=== PATIENT | female | born 1990 | race Caucasian/White ===

== ENCOUNTER 2022-04-27 18:14 | Emergency (ER) | payer OTHER, SELFPAY ==
[2022-04-27 18:19] VITALS: BP 126/75; PULSE 83; RESP 16; TEMP 37.1; O2SAT 99
--- NOTE | 2022-04-27 18:19 | ED.SKABFB ---
HPI - Skin/Abscess/Foreign Bdy General Chief complaint: Skin/Abscess/Foreign Body Stated complaint: Rash Time Seen by Provider: 04/27/22 18:20 Source: patient Mode of arrival: ambulatory Limitations: no limitations History of Present Illness HPI narrative: Clara is a 31-year-old female patient presenting to the clinic today with the itchy rash on her torso, chest, and upper thighs. States that this rash has been going on for 3-4 days. She has recently bought a new wool polyester blanket and thinks that this may be the cause. No one else in the house has the rash. 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 Related Data Allergies Allergy/AdvReac Type Severity Reaction Status Date / Time cefadroxil [From [facility]] Allergy Rash Verified 04/27/22 18:29 Review of Systems Review of Systems: Pertinent positives per HPI. Patient denies any fever, chills, headache, visual changes, dizziness, cough, runny nose, sore throat, shortness of breath, chest pain, palpitations, nausea, vomiting, diarrhea, constipation, abdominal pain, or any urinary issues. PMFSH Comments At the time of my signature, I reviewed and agree with the nursing past medical, surgical, social, and family history. There is no relevant family history pertinent to the patient complaint. Exam Narrative: General: Well-developed, well nourished, in no apparent distress Head: Normocephalic, atraumatic. Cardio: Regular rate and rhythm, s1 and s2 normal, no murmur appreciated. Resp: Clear to auscultation bilaterally, no rhonchi, rales, wheezing or rubs. Integumentary: [place], warm, and dry, intact without lesion, Red raised papular itchy scaly rash to the torso, chest, and bilateral thighs Course Course Emergency Course: Portions of this record may have been created with voice recognition software. Level of Care: Express Care Visit Vital Signs Vital signs: Vital Signs Temperature 37.1 C 04/27/22 18:19 Pulse Rate 83 04/27/22 18:19 Respiratory Rate 16 04/27/22 18:19 Blood Pressure 126/75 04/27/22 18:19 Pulse Oximetry 99 04/27/22 18:19 Oxygen Delivery Room Air 04/27/22 18:19 Temperature 37.1 C 04/27/22 18:19 Pulse Rate 83 04/27/22 18:19 Respiratory Rate 16 04/27/22 18:19 Blood Pressure 126/75 04/27/22 18:19 Pulse Oximetry 99 04/27/22 18:19 Oxygen Delivery Room Air 04/27/22 18:19 Vital signs reviewed MDM - Skin/Abscess/Foreign Bdy MDM Narrative Medical decision making narrative: At the time of visit patient is resting comfortably on exam table. I suspect patient has dermatitis. Prescription for prednisone and Vistaril was prescribed and sent to the pharmacy. Supportive measures were discussed with the patient she voiced understanding discharge instructions and agrees to treatment plan. Differential Diagnosis Differential diagnosis: Likely abscess of skin or subcutaneous tissue, urticaria, eczema, insect bites and contact dermatitis Discharge Plan Discharge Clinical Impression: Dermatitis Patient Disposition: Home, Self-Care Condition: Stable Instructions: Antibiotic Form, Dermatitis (ED) Additional Instructions: Avoid taking hot showers. Take Vistaril as needed for itching. Take prednisone as prescribed Avoid scratching Avoid any irritating factors- wool blanket Moisturize skin twice daily using a non scented moisturizer Follow-up with your PCP in 3-5 days if symptoms persist or sooner if they worsen Prescriptions: New hydroxyzine pamoate [Vistaril] 25 mg capsule 25 mg PO TID PRN (Reason: itching) 7 Days Qty: 20 0RF prednisone 20 mg tablet 40 mg PO DAILY 5 Days Qty: 10 0RF Follow-up/Referrals: Jaron Del Rosario MD [Primary Care Provider] - Time of Disposition: 18:31 Quality NIHSS Nursing Documentation ED NIHSS nursing documentation: reviewed/agree
== END 2022-04-27 18:34 | disposition home or self-care (01) ==
PROVIDERS: Emergency Provider Nurse Practitioner Family; PCP Family Medicine
DX: L30.9 Dermatitis, unspecified (principal); J45.909 Unspecified asthma, uncomplicated
CPT/HCPCS: 99203; G0463

== ENCOUNTER 2023-03-22 11:02 | Emergency (ER) | payer OTHER, SELFPAY ==
[2023-03-22 11:10] VITALS: BP 111/74; PULSE 75; RESP 16; TEMP 36.9; O2SAT 96
--- NOTE | 2023-03-22 11:12 | ED.URI ---
HPI - URI/Sore Throat General Chief Complaint: Upper Respiratory Infection Stated Complaint: Congestion Time Seen by Provider: 03/22/23 11:15 Source: patient Mode of arrival: ambulatory Limitations: no limitations History of Present Illness HPI Narrative: Clara is a 32-year-old female patient presenting to the clinic today with complaints of nasal congestion, sore throat, chest congestion, fever, chills, and body aches x1 week. She reports fever was high as 101.8 earlier this week. Temperature last night was 100F MD elicited complaint: sore throat and nasal congestion Related Data Allergies Allergy/AdvReac Type Severity Reaction Status Date / Time cefadroxil [From [facility]] Allergy Rash Verified 04/27/22 18:29 Review of Systems Review of Systems: Pertinent positives per HPI. Patient denies any rash, headache, visual changes, dizziness, shortness of breath, chest pain, palpitations, nausea, vomiting, diarrhea, constipation, abdominal pain, or any urinary issues. PMFSH Comments At the time of my signature, I reviewed and agree with the nursing past medical, surgical, social, and family history. There is no relevant family history pertinent to the patient complaint. Exam Narrative: General: Well-developed, well nourished, in no apparent distress Head: Normocephalic, atraumatic Eyes: Pupils equally round and reactive to light bilaterally, EOM intact, sclera and conjunctive clear, no discharge, lids normal Ears: TMs intact and clear, ear canals clear, no drainage, grossly hearing normal. Nose: Nares patent, clear nasal discharge, no inflammation, no sinus tenderness. Mouth: Oral pharynx red without lesions or masses, good dentition, MMM. Neck: Supple, trachea midline, mild enlargement of anterior cervical nodes, no thyroid masses or goiter palpable. Cardio: Regular rate and rhythm, s1 and s2 normal, no murmur appreciated. Resp: Clear to auscultation bilaterally, no rhonchi, rales, wheezing or rubs Course Course Emergency Course: Portions of this record may have been created with voice recognition software. Level of Care: Express Care Visit Vital Signs Vital signs: Vital Signs Temperature 36.9 C 03/22/23 11:10 Pulse Rate 75 03/22/23 11:10 Respiratory Rate 16 03/22/23 11:10 Blood Pressure 111/74 03/22/23 11:10 Pulse Oximetry 96 03/22/23 11:10 Oxygen Delivery Room Air 03/22/23 11:10 Temperature 36.9 C 03/22/23 11:10 Pulse Rate 75 03/22/23 11:10 Respiratory Rate 16 03/22/23 11:10 Blood Pressure 111/74 03/22/23 11:10 Pulse Oximetry 96 03/22/23 11:10 Oxygen Delivery Room Air 03/22/23 11:10 Vital signs reviewed MDM - URI/Sore Throat MDM Narrative Medical decision making narrative: At the time of visit patient is resting comfortably on the exam table. Strep test was positive in the clinic today. I suspect patient has URI with strep pharyngitis. Prescription for amoxicillin was sent to the pharmacy and supportive measures were discussed with the patient he voiced understanding of discharge instructions and agrees to treatment plan. Differential Diagnosis Differential diagnosis: Likely upper respiratory infection, otitis media, sinusitis, viral infection, bronchitis, influenza, pharyngitis and other (COVID) Discharge Plan Discharge Clinical Impression: Acute streptococcal pharyngitis Upper respiratory infection Qualifiers: URI type: unspecified URI Qualified Code(s): J06.9 - Acute upper respiratory infection, unspecified Patient Disposition: Home, Self-Care Condition: Stable Instructions: Antibiotic Form, Strep Throat (ED), Upper Respiratory Infection (ED) Additional Instructions: Take prescription medications only as prescribed-amoxicillin Change toothbrush in 24 hours after initiation of the antibiotics Increase fluids and stay well hydrated Tylenol/motrin for pain/fever Flonase and OTC antihistamines as directed Vicks vapor
== END 2023-03-22 11:34 | disposition home or self-care (01) ==
PROVIDERS: Emergency Provider Nurse Practitioner Family
DX: J02.0 Streptococcal pharyngitis (principal); J45.909 Unspecified asthma, uncomplicated
CPT/HCPCS: 87880; 99213; G0463

== ENCOUNTER 2023-04-28 12:00 | Emergency (ER) | payer OTHER, SELFPAY ==
[2023-04-28 12:10] VITALS: BP 121/75; PULSE 69; RESP 16; TEMP 36.9; O2SAT 100
--- NOTE | 2023-04-28 13:04 | ED.URI ---
HPI - URI/Sore Throat General Chief Complaint: Upper Respiratory Infection Stated Complaint: Congestion/Sore Throat History of Present Illness HPI Narrative: Patient presents with a 3 day history of nasal congestion cough and sore throat. No trouble swallowing no drooling. Patient has not been exposed to any viruses that she is aware of. Patient is taking NyQuil DayQuil for her symptoms. Patient states she missed work Saturday and does not feels if she is able to go to work tomorrow she would like a work note. Related Data Home Medications Medication Instructions Recorded Confirmed No Home Medications 04/28/23 04/28/23 Allergies Allergy/AdvReac Type Severity Reaction Status Date / Time [facility] [[facility]] Allergy Rash Verified 04/28/23 12:35 Review of Systems Review of Systems: CONSTITUTIONAL: Denies chills, or sweats. Reports fever and generalized body aches EYES: Denies visual changes, redness, or discharge. ENT: Denies otalgia. Reports nasal congestion runny nose and sore throat CARDIOVASCULAR: Denies chest pain, palpitations, or edema. RESPIRATORY: Denies dyspnea. Reports occasional cough GASTROINTESTINAL: Denies abdominal pain, nausea, vomiting, or diarrhea. GENITOURINARY: Denies dysuria or hematuria. SKIN: Denies rash or itching. MUSCULOSKELETAL: Denies back pain, joint pain, or myalgia. Reports generalized body aches NEUROLOGIC: Denies headache, numbness, or weakness. PSYCHIATRIC: Denies anxiety or depression. PMFSH Comments At time of signature, agree with nursing past medical, surgical, social and family history. There is no relevant family history pertinent to the presenting complaint Exam Narrative: The patient is a well-developed, well-nourished in no acute distress. SKIN: Skin is warm and dry without erythema, swelling or exudate. There is good turgor. No tenting. HEAD: Atraumatic. Normocephalic. No temporal or scalp tenderness. EYES: Moist and bright. Sclera and conjunctivae normal. No discharge. PERRLA. Extraocular motions intact. Gross visual acuity intact. EARS: Pinna is normal shape and contour. Clear external auditory canals. TM pearly sainz with good cone of light, no erythema or suppuration. Bilateral cerumen noted no gross hearing deficit. NOSE: pink, moist mucosa with good air movement. Clear rhinorrhea without nasal flaring. Septum midline. Mouth: moist mucous membranes. THROAT; mild erythema noted to posterior oropharynx with moderate postnasal drainage. Without exudate or ulceration.. Uvula midline. Normal movement of soft palate. NECK: Supple and nontender with full range of motion without discomfort. No meningeal signs. LUNGS: Equal and bilateral breath sounds without wheezes, rales or rhonchi. CHEST: The chest wall is without retractions or use of accessory muscles. HEART: Has a regular rate and rhythm without murmur, gallops, click or rub. ABDOMEN: Soft, nontender with positive active bowel sounds. No rebound tenderness. EXTREMITIES: Without cyanosis, clubbing or edema. Equal 2+ distal pulses and 2 second capillary refill noted. NEUROLOGIC: alert, active, . The patient moves all extremities with normal muscle strength. Normal muscle tone is noted. Normal coordination is noted. NO focal neurological findings noted. Course Course Level of Care: Express Care Visit Vital Signs Vital signs: Vital Signs Temperature 36.9 C 04/28/23 12:10 Pulse Rate 69 04/28/23 12:10 Respiratory Rate 16 04/28/23 12:10 Blood Pressure 121/75 04/28/23 12:10 Pulse Oximetry 100 04/28/23 12:10 Oxygen Delivery Room Air 04/28/23 12:10 Temperature 36.9 C 04/28/23 12:10 Pulse Rate 69 04/28/23 12:10 Respiratory Rate 16 04/28/23 12:10 Blood Pressure 121/75 04/28/23 12:10 Pulse Oximetry 100 04/28/23 12:10 Oxygen Delivery Room Air 04/28/23 12:10 MDM - URI/Sore Throat Lab Data Labs: Influenza A Screen Negative
== END 2023-04-28 13:12 | disposition home or self-care (01) ==
PROVIDERS: Emergency Provider Nurse Practitioner Family
DX: J06.9 Acute upper respiratory infection, unspecified (principal)
CPT/HCPCS: 87081; 87804; 87880; 99213; G0463

== ENCOUNTER 2024-02-10 18:13 | Emergency (ER) | payer SELFPAY ==
[2024-02-10 18:20] VITALS: BP 109/63; PULSE 59; RESP 17; TEMP 37.2; O2SAT 99
--- NOTE | 2024-02-10 18:23 | ED.URI ---
HPI - URI/Sore Throat General Chief Complaint: Upper Respiratory Infection Stated Complaint: Sore Throat/Headache Time Seen by Provider: 02/10/24 18:47 Source: patient Mode of arrival: ambulatory Limitations: no limitations History of Present Illness HPI Narrative: Patient is a 33-year-old female who presents with sore throat started today along with headache 3 days. Patient at home COVID test was negative. Denies any fever, chills, nausea, vomiting, diarrhea. Has not taken anything for symptoms. Related Data Home Medications Medication Instructions Recorded Confirmed No Home Medications 04/28/23 02/10/24 Allergies Allergy/AdvReac Type Severity Reaction Status Date / Time cefadroxil [From [facility]] Allergy Rash Verified 04/28/23 12:35 Review of Systems Review of Systems: All systems reviewed & are unremarkable except as noted in HPI and below Constitutional: Constitutional: Denies body ache(s), Denies chills, Denies fatigue, Denies fever(s), Denies headache(s), Denies malaise and Denies weakness Eyes: Eyes: Denies blurry vision, Denies itchy eyes and Denies loss of vision ENT: Denies otalgia, Denies headache(s), Reports nasal congestion, Denies sinus pain and Denies sore throat Cardiovascular: Cardiovascular: Denies chest pain, Denies irregular heart rhythm and Denies dyspnea Respiratory: Respiratory: Reports cough and Denies dyspnea Gastrointestinal: Gastrointestinal: Denies abdominal pain, Denies diarrhea, Denies nausea and Denies vomiting Musculoskeletal: Musculoskeletal: Denies back pain, Denies myalgias and Denies arthralgias Integumentary/Breasts: Skin/Breast: Denies pruritus and Denies rash Neurologic: Denies headache(s), Denies loss of vision and Denies weakness Psychiatric: Psychiatric: Reports no additional psychiatric complaints Endocrine: Endocrine: Denies fatigue Allergic/Immunologic: Allergic/Immunologic: Denies itchy eyes PMFSH Comments At time of signature, agree with nursing past medical, surgical, social and family history. There is no relevant family history pertinent to the presenting complaint. Exam Const: General: cooperative, healthy appearing, comfortable, no acute distress and well nourished Nutritional Appearance: well nourished Orientation/consciousness: patient oriented x3 Limitations: no limitations HENMT: Head: normal to inspection, normocephalic and atraumatic Ears: hearing grossly normal bilaterally, external ears normal, TM's normal bilaterally, EAC's normal and no periauricular adenopathy Face/Nose/Sinus: Normal external nose present, Abnormal mucous membranes and turbinates present erythematous bilateral and diffuse, normal facial exam, sinuses nontender and face symmetric Face and sinus: normal facial exam, sinuses nontender and face symmetric Mouth: Yes Normal oral and palatal mucosa present, Yes lip normal, Yes tongue normal, Yes Normal salivary glands and ducts present, Yes oropharynx normal and Yes moist mucous membranes Teeth and gingiva: dentition normal Throat: posterior oropharynx normal, tonsils normal and uvula midline Eyes: General: appearance normal, both eyes and all related structures Alignment and Position: alignment normal and position normal Periorbital: periorbital findings normal Eyelids: eyelids normal Pupils: Equal, round and reactive pupils present Neck: Neck: normal visual inspection, full ROM, no lymphadenopathy and supple Chest: Chest palpation & inspection: normal inspection of the chest and normal palpation of entire chest wall Resp: Effort & Inspection: normal respiratory effort and able to speak in complete sentences Auscultation: clear to auscultation bilaterally, no crackles, no rales, no rhonchi and no wheezes Cardio: Rate: regular rate Rhythm: regular rhythm Heart sounds: S1 normal heart sound present and S2 normal heart sound present GI: Inspection: normal to inspection Skin: General skin exam: normal color and no rashes
[2024-02-10 19:02] LABS: EDSTREPNEGPOS1 Negative (Negative)
== END 2024-02-10 19:20 | disposition home or self-care (01) ==
PROVIDERS: Emergency Provider Nurse Practitioner Family
DX: J06.9 Acute upper respiratory infection, unspecified (principal); J45.909 Unspecified asthma, uncomplicated
CPT/HCPCS: 87081; 87880; 99213; G0463

== ENCOUNTER 2024-07-01 10:20 | Emergency (ER) | payer SELFPAY ==
[2024-07-01 10:24] VITALS: BP 100/68; PULSE 68; RESP 16; TEMP 36.4; O2SAT 100
--- NOTE | 2024-07-01 10:35 | ED_ITS ---
HPI - Headache General Chief Complaint: Headache Stated Complaint: Headache Source: patient Mode of arrival: ambulatory Limitations: no limitations History of Present Illness HPI Narrative: 33 y/o female presented for c/o migraine headache, onset midnight. Endorses 'tunnel vision,' nausea with an episode of vomiting. States she has been able to tolerate food and fluids. Denies neck pain, fatigue, cough, sob, wheezing or fever. Says she has not had a migraine in 2 years. Took Excedrin, and says it is starting to calm down. Related Data Allergies Allergy/AdvReac Type Severity Reaction Status Date / Time cefadroxil (From [facility]) Allergy Rash Verified 07/01/24 10:28 Review of Systems Review of Systems: CONSTITUTIONAL: Denies body aches, fever, chills, or sweats. EYES: reports visual changes, photophobia denies redness, or discharge. ENT: Denies rhinorrhea, congestion, sore throat, or otalgia. CARDIOVASCULAR: Denies chest pain, palpitations, or edema. RESPIRATORY: Denies cough or dyspnea. GASTROINTESTINAL: Denies abdominal pain, reports nausea, vomiting SKIN: Denies rash, itching, or wounds. MUSCULOSKELETAL: Denies back pain, joint pain, or myalgia. NEUROLOGIC: reports headache, Denies numbness, tingling, or weakness. All systems reviewed & are unremarkable except as noted in HPI and below PMFSH Comments At time of signature, I have reviewed and agree with nursing past medical, surgical, social and family history unless otherwise noted. Please see nursing chart for further information. There is no relevant family history pertinent to the presenting complaint Exam Narrative: GENERAL: mildly ill-appearing/in pain, no acute distress. HEAD: Normocephalic, atraumatic. EYES: EOMI. No redness or drainage. Conjunctivae normal. ENT: Mucous membranes pink and moist. No rhinorrhea. TMs normal bilaterally. Throat normal. Uvula midline. NECK: Normal AROM. CHEST: No respiratory distress. Clear to auscultation. HEART: Regular rate and rhythm. Normal peripheral pulses. SKIN: Warm, dry, no rash. Capillary refill normal. Normal skin turgor. NEURO: No focal deficits. Alert and oriented x3. Gait steady. PSYCH: Normal affect. Course Course Emergency Course: Patient is aware of diagnosis, understands and agrees to treatment plan. Anticipatory guidance given. Patient agrees to follow-up as directed and is aware of reasons to seek care at the emergency department. Portions of this record may have been created with voice recognition software Level of Care: Express Care Visit Vital Signs Vital signs: Vital Signs Temperature 97.5 F L 07/01/24 10:24 Pulse Rate 68 07/01/24 10:24 Respiratory Rate 16 07/01/24 10:24 Blood Pressure 100/68 07/01/24 10:24 Pulse Oximetry 100 07/01/24 10:24 Oxygen Delivery Room Air 07/01/24 10:24 Temperature 97.5 F L 07/01/24 10:24 Pulse Rate 68 07/01/24 10:24 Respiratory Rate 16 07/01/24 10:24 Blood Pressure 100/68 07/01/24 10:24 Pulse Oximetry 100 07/01/24 10:24 Oxygen Delivery Room Air 07/01/24 10:24 MDM - Headache MDM Narrative Medical decision making narrative: Discussed physical exam findings consistent with migraine. IM Toradol given and pt reported improvement in the tunnel vision and says she feels stronger.. Advised supportive measures and signs/symptoms to go to the ER. Pt is appropriate for outpt treatment and f/u. Differential Diagnosis Differential diagnosis: Likely migraine, tension headache, subarachnoid hemorrhage, headache and sinusitis Discharge Plan Discharge Clinical Impression: Migraine Patient Disposition: Home, Self-Care Condition: Stable Instructions: Antibiotic Form, Migraine Headache (ED) Additional Instructions: Rest in a cool dark room Avoid screens (computers, tablets, phones, television) Drink plenty fluids. Tylenol 1000mg every 8 hours as needed Follow up with your primary care provider in 1 week Go to the ER for worsening symptoms or concerns Patient Language: Persian Prescriptions: New sumatriptan succinate 25 mg tablet See Rx Instructions .ROUTE .COMPLEX Qty: 9 0RF Rx Instructions: take 1 tab at onset of headache; if no relief may repeat 1 tab after at least 2 hrs; max = 4 tabs/24 hr Follow-up/Referrals: PHYSICIAN,DINING ROOM HOST/HOSTESS [Primary Care Provider] - Stand Alone Forms: Work/School Release IP Time of Disposition: 11:06
[2024-07-01] MEDS: KETOROLAC (*BKC) 60 MG/2 ML VIAL IM (10:48)
--- OUTSIDE RECORDS SUMMARY | 2024-07-01 11:41 | XMS_ITS | Clinical Summary ---
Author Organization [facility] Address [address] [place] [address] Phone Care Team Providers Care Post Doctoral Researcher Name Role Phone Unavailable Unavailable Unavailable Reason for Visit and Chief Complaint Pt presents for problem in addition to annual exam, gynecologic annual exam - The Chief Complaint is: Annual-pt would like to schedule her u/s since she had a cyst awhile back. Now she has insurance again. She also has a yeast infection and would like another nexplanon/kk Problems Includes: Problems addressed during this encounter and other active Problems Current Visit Onset Date Resolved Date Provider Conditio n Status Risk: Tobacco Use 10/14/2017 RIGO A FORTUNATO WHNP -BC Active Last Documented On 8 9:14AM ; [facility] Plan of Treatment - Clinical summary provided to patient - Last Documented On 10/14/2017 9:37AM ; [facility] Pending Tests Order Diagnosis Results Due Ordering P rovider Ultrasound (OB) - ULTRASOUND Pelvic w/TVT (TransVag) Other ovarian cyst, right side 10/14/17 RIGO BUCIO WHNP-BC Last Documented On 9 1:27PM ; [facility] Instructions to patient Instructions for patient : B reast Self Exam discussed Last Documented On 8 9:09AM ; [facility] Instructions for patient : K eep the area around the vulva dry. Allow the area to have exposure to air. Avoid irritants such as fabric softeners and perfumed soaps.~ Last Documented On 8 9:21AM ; [facility] Return to the clinic if cond ition worsens or new symptoms arise Last Documented On 8 9:20AM ; [facility] Advised d/c scented bath pro ducts Last Documented On 8 9:21AM ; [facility] ER/ Pain Precautions Last Documented On 8 9:20AM ; [facility] Gardasil information given a nd series encouraged Series completed! Last Documented On 8 9:11AM ; [facility] Safe sex counseling Last Documented On 8 9:11AM ; [facility] Education and Decision Aids were provided during visit for: Patient Education: Daily giovany cium and vitamin D Last Documented On 8 9:09AM ; [facility] Patient Education: weight be aring exercise Last Documented On 8 9:09AM ; [facility] Smoking cessation advised Last Documented On 8 9:11AM ; [facility] Candidiasis Vulvovaginitis I nformation Sheet Given Last Documented On 8 9:21AM ; [facility] Assessments Includes: Assessments from this encounter Findings - NORMAL FEMALE EXAM - Last Documented On 10/14/2017 9:37AM ; [facility] - Shannen albicans vulvovaginitis - Last Documented On 10/14/2017 9:37AM ; [facility] Instructions Includes: Instructions from this encounter Instructions to patient Instructions for patient : B reast Self Exam discussed Last Documented On 8 9:09AM ; [facility] Instructions for patient : K eep the area around the vulva dry. Allow the area to have exposure to air. Avoid irritants such as fabric softeners and perfumed soaps.~ Last Documented On 8 9:21AM ; [facility] Return to the clinic if cond ition worsens or new symptoms arise Last Documented On 8 9:20AM ; [facility] Advised d/c scented bath pro ducts Last Documented On 8 9:21AM ; [facility] ER/ Pain Precautions Last Documented On 8 9:20AM ; [facility] Gardasil information given a nd series encouraged Series completed! Last Documented On 8 9:11AM ; [facility] Safe sex counseling Last Documented On 8 9:11AM ; [facility] Education and Decision Aids were provided during visit for: Patient Education: Daily giovany cium and vitamin D Last Documented On 8 9:09AM ; [facility] Patient Education: weight be aring exercise Last Documented On 8 9:09AM ; [facility] Smoking cessation advised Last Documented On 8 9:11AM ; [facility] Candidiasis Vulvovaginitis I nformation Sheet Given Last Documented On 8 9:21AM ; [facility] Medical Equipment - Implanted Devices Includes: Current Devices No Medical Equipment Recorded Medications Includes: Medications discussed during this encounter and other current Medications Discontinued / Stopped on this date RIGO BUCIO JOSE on 10/18/2014 Bactrim DS 800-160 MG Tablet Provider: RIGO BLAKELY Diagnosis: DYSURIA Last Documented On 10/14/2017 9:20AM By MALKA SAENZ ; [facility] Diflucan 150 MG Tablet Provider: RIGO BLAKELY Diagnosis: Last Documented On 10/14/2017 9:20AM By MALKA SAENZ ; [facility] New / Renewed during this visit RIGO BLAKELY on 10/14/2017 Diflucan 150MG Oral Tablet Provider: Stephen BUCIO JOSE 1 day supply: 1 tablet, 0 refills Diagnosis: One tablet daily [facility] [address] [facility], [phone] - Last Documented On 8 9:45AM By RIGO BLAKELY ; [facility] Current Medications (continue as prescribed) Nexplanon 68MG Subcutaneous Implant 10/31/2017 Provi misti: Diagnosis: Last Documented On 8 10:10AM By RIGO BUCIO JOSE ; [facility] Past Medications on file Macrobid 100 MG OR CAPS 05/10/2009 - 05/17/2009 Provid er: Diagnosis: Last Documented On 05/12/2009 9:33AM By KRISTI OROSCO ; [facility] Reglan 10 MG OR TABS 01/26/2009 - 02/16/2009 Provider: Diagnosis: Last Documented On 05/12/2009 9:34AM By KRISTI OROSCO ; [facility] PX Childrens Vitamin OR CHEW 01/13/2009 - 01/08/2010 Gaetano kelsynatalie: Diagnosis: Last Documented On 05/12/2009 9:32AM By KRISTI OROSCO ; [facility] Zofran 4 MG OR TABS 01/03/2009 - 01/19/2009 Provider: Diagnosis: 1 q 4 hr Last Documented On 05/12/2009 9:36AM By KRISTI OROSCO ; [facility] Medications Administered Includes: Administered Medications from this encounter No Administered Medications Recorded Vital Signs Includes: Vital Signs from this encounter Vital Name 10/14/2017 09:14A Blood Pressure Sitting L 110/64 BP Cuff Size Regular Height (in) 64 Weight (lb) 155 Body Mass Index (kg/m2) 26.6 Body Surface Area (m2) 1.8 Last Documented: On 10/14/2017 9:18AM ; [facility] Results Includes: Results discussed during this encounter No Results Recorded For Specified Dates History of Present Illness Includes: History of Present Illness from this encounter NYASIA KING is a 27 year old female. - Medication list reviewed. - No night sweats. Social History Description Last Updated Alcohol use rarely 10/14/2017 Last Documented On 8 9:37AM ; [facility] Cigarette smoking 10/14/2017 Last Documented On 8 9:37AM ; [facility] In monogamous relationship 10/14/2017 Last Documented On 8 9:37AM ; [facility] Not using drugs 10/14/2017 Last Documented On 8 9:37AM ; [facility] Sexually active with 1 partners in the l ast year 10/14/2017 Last Documented On 8 9:37AM ; [facility] Social history changed pt is now taking care of her 3 nieces and newphew with her mother 10/14/2017 Last Documented On 8 9:37AM ; [facility] Smoking status : Current everyday smoker 10/14/2017 Last Documented On 8 9:37AM ; [facility] Procedures and Surgical History Includes: Procedures from this encounter Procedures Code Diagnosis Performing Provider Service L ocation Service Date low fat diet Last Documented On 8 9:11AM ; [facility] a vaginal wet mount smear was performed [id number] Last Documented On 8 9:21AM ; [facility] a vaginal wet mount smear for shannen wa s positive Last Documented On 8 9:34AM ; [facility] a vaginal wet mount smear for Trichomona s vaginalis was negative Last Documented On 8 9:21AM ; [facility] a vaginal wet mount smear for clue cells was negative Last Documented On 8 9:21AM ; [facility] Chlamydia trachomatis culture was perfor med Last Documented On 8 9:11AM ; [facility] Neisseria gonorrhea culture was performe d Last Documented On 8 9:11AM ; [facility] Cervical Pap Smear performed [id number] Last Documented On 8 9:10AM ; [facility] Surgical History Last Updated Surgical / procedural history tubes in e ar ~surg on kidney 10/31/2017 Last Documented On 8 9:11AM ; [facility] Medical History Includes: Medical History addressed during this encounter Description Last Updated tubes in ears as baby ~age 6 &11 kidney reflux 10/31/2017 Last Documented On 8 9:11AM ; [facility] Asthma inhaler prn 10/31/2017 Last Documented On 8 9:11AM ; [facility] 1 10/31/2017 Last Documented On 8 9:11AM ; [facility] History of Gardasil had with pedbenny martinez 10/31/2017 Last Documented On 8 9:11AM ; [facility] Para 1 10/31/2017 Last Documented On 8 9:11AM ; [facility] No recent change in medical history 09/21 Last Documented On 8 9:37AM ; [facility] Sexually active 10/14/2017 Last Documented On 8 9:37AM ; [facility] Contraception: nexplanon 5-7-15 10/15/19 18 Last Documented On 8 9:37AM ; [facility] History of Pap smear done 07/08/201409/21 Last Documented On 8 9:37AM ; [facility] LMP: 09/04/2017 10/14/2017 Last Documented On 8 9:37AM ; [facility] Result: normal 10/14/2017 Last Documented On 8 9:37AM ; [facility] Family History Includes: Family History addressed during this encounter Description Last Updated Family history of Cancer lung, breast Last Documented On 8 9:11AM ; [facility] Family history unchanged 10/31/2017 Last Documented On 8 9:11AM ; [facility] Family medical history of high blood pre ssure 10/31/2017 Last Documented On 8 9:11AM ; [facility] Family medical history of High Cholester ol MGF 10/31/2017 Last Documented On 8 9:11AM ; [facility] Maternal grandfather's history of family history of heart disease MGF 10/14/2017 Last Documented On 8 9:37AM ; [facility] Maternal history of pure hypercholestero lemia mother 10/14/2017 Last Documented On 8 9:37AM ; [facility] Review of Systems Includes: Review of Systems from this encounter Systemic: Not feeling poorly (malaise). Eyes: No itching of the eyes. Otolaryngeal: No mouth sores. Breasts: No nipple discharge. Cardiovascular: The heart rate was not fast. Gastrointestinal: Normal appetite, no dysphagia, and no heartburn. No nausea, no vomiting, no abdominal pain, and no melena. No diarrhea. No pelvic pain. Genitourinary: No hematuria and no increase in urinary frequency. No dysuria. No genital lesion. Vaginal itching or burning. No menorrhagia. No dysmenorrhea and no bleeding between periods. Vaginal discharge. Endocrine: No excessive sweating. Musculoskeletal: No muscle aches. Neurological: No motor disturbances and no sensory disturbances. Skin: No skin lesions. Mental Status Includes: Mental Status from this encounter No Mental Status Recorded Functional Status Includes: Functional Status from this encounter No Functional Status Recorded Physical Exam Includes: Physical Exam from this encounter Allergies Includes: Active Allergies Substance Type Reaction Onset Date Resolved Date Statu s Cefadroxil Allergy Skin Rashes / Eruption of skin, Hives / Urticaria 05/12/2009 Active Last Documented On 10/14/2017 9:20AM ; [facility] Note: Duracef Encounters Encounter Provider Location Date Check-In Time Check-Out Time Diagnosis 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
--- OUTSIDE RECORDS SUMMARY | 2024-07-01 11:41 | XMS_ITS | Clinical Summary ---
Author Organization [facility] Address [address] [place] [phone] Phone Care Team Providers Care Seaming Inspector Name Role Phone Unavailable Unavailable Unavailable Reason for Visit and Chief Complaint unspecified reason for visit - The Chief Complaint is: nexplanon removal and reinsertion lot [id number] Problems Includes: Problems addressed during this encounter and other active Problems All Visits Onset Date Resolved Date Provider Condition S tatus Risk: Tobacco Use 10/14/2017 RIGO A FORTUNATO WHNP -BC Active Last Documented On 8 9:14AM ; [facility] Plan of Treatment - Clinical summary provided to patient - Last Documented On 10/31/2017 10:28AM ; [facility] Recheck urine culture today - s/p UTI and antibx at last visit! No c/o today! - Last Documented On 10/31/2017 10:28AM ; [facility] Pending Tests Order Diagnosis Results Due Ordering Provider In office procedures - OB Implanon Insertion Enctr srvlnc implantable subdermal contraceptive 11/14/17 RIGO A FORTUNATO WHNP-BC Last Documented On 8 10:27AM ; [facility] In office procedures - OB Implanon Removal Enctr srvlnc implantable subdermal contraceptive 11/14/17 RIGO A FORTUNATO WHNP-BC Last Documented On 8 10:27AM ; [facility] Education and Decision Aids were provided during visit for: Smoking cessation advised Last Documented On 8 10:10AM ; [facility] Assessments Includes: Assessments from this encounter Findings - Contraceptive surveillance - Last Documented On 10/31/2017 10:28AM ; [facility] Instructions Includes: Instructions from this encounter Education and Decision Aids were provided during visit for: Smoking cessation advised Last Documented On 8 10:10AM ; [facility] Medical Equipment - Implanted Devices Includes: Current Devices No Medical Equipment Recorded Medications Includes: Medications discussed during this encounter and other current Medications Discontinued / Stopped on this date on 08/26/2014 Nexplanon 68 MG Implant Provider: Diagnosis: Last Documented On 8 10:07AM By RIGO BUCIO JOSE ; [facility] Current Medications (continue as prescribed) Nexplanon 68MG Subcutaneous Implant 10/31/2017 Provi misti: Diagnosis: Last Documented On 8 10:10AM By RIGO BUCIO JOSE ; [facility] Diflucan 150MG Oral Tablet 10/14/2017 Provider: Stephen BLAKELY Diagnosis: One tablet daily Last Documented On 8 9:45AM By RIGO BUCIO JOSE ; [facility] Past Medications on file Macrobid 100 MG OR CAPS 05/10/2009 - 05/17/2009 Provid er: Diagnosis: Last Documented On 05/12/2009 9:33AM By KRISTI OROSCO ; [facility] Reglan 10 MG OR TABS 01/26/2009 - 02/16/2009 Provider: Diagnosis: Last Documented On 05/12/2009 9:34AM By KRISTI OROSCO ; [facility] PX Childrens Vitamin OR CHEW 01/13/2009 - 01/08/2010 Gaetano simmsder: Diagnosis: Last Documented On 05/12/2009 9:32AM By KRISTI OROSCO ; [facility] Zofran 4 MG OR TABS 01/03/2009 - 01/19/2009 Provider: Diagnosis: 1 q 4 hr Last Documented On 05/12/2009 9:36AM By KRISTI OROSCO ; [facility] Medications Administered Includes: Administered Medications from this encounter No Administered Medications Recorded Vital Signs Includes: Vital Signs from this encounter Vital Name 10/31/2017 10:04A Blood Pressure Sitting L 110/60 BP Cuff Size Regular Height (in) 64 Weight (lb) 157 Body Mass Index (kg/m2) 26.9 Body Surface Area (m2) 1.8 Last Documented: On 10/31/2017 10:06A M ; [facility] Results Includes: Results discussed during this encounter CULTURE, URINE, ROUTINE [facility]2014 Collected: 09/27/2014 Reported: 10/01/19 15 13:39 Last Documented On 5 2:18PM ; [facility] Reviewed on 09/30/2014; All test results are final unless otherwise noted. CULTURE, URINE, ROUTINE SEE NOTE A (Abnormal) Last Documented On 09/30/2014 2:18PM ; [facility] Note: CULTURE, URINE, ROUTINE MICRO NUMBER: [id number] TEST STATUS: FINAL SPECIMEN SOURCE: URINE, CLEAN CATCH SPECIMEN QUALITY: ADEQUATE RESULT: 10,000-50,000 CFU/mL of Escherichia coli COMMENT: Additional organism(s) less than 10,000 CFU/mL isolated. These organisms, commonly found on external and internal genitalia, are considered colonizers. No further testing performed. E.coli INT EDGAR AMOX/CLAVULANATE S <=2 AMPICILLIN S 4 AMP/SULBACTAM S <=2 CEFAZOLIN NR <=4 1 CEFEPIME S <=1 CEFTRIAXONE S <=1 CIPROFLOXACIN R >=4 ERTAPENEM S <=0.5 GENTAMICIN S <=1 IMIPENEM S <=0.25 LEVOFLOXACIN R >=8 NITROFURANTOIN S <=16 PIP/TAZOBACTAM S <=4 TOBRAMYCIN S <=1 TRIMETHOPRIM/SULFA S <=20S=Susceptible I=Intermediate R=Resistant * = Not TestedNR = Not Reported NN = See Therapy CommentsTHERAPY COMMENTS Note 1: ORAL therapy: A cefazolin EDGAR of < 32 predicts susceptibility to the oral agents cefaclor, cefdinir, cefpodoxime, cefprozil, cefuroxime, cephalexin, and loracarbef when used for therapy of uncomplicated UTIs due to E. coli, K. pneumoniae, and P. mirabilis. PARENTERAL therapy: A cefazolin EDGAR of > 8 indicates resistance to parenteral cefazolin. An alternate test method must be performed to to confirm susceptibility to parenteral cefazolin. History of Present Illness Includes: History of Present Illness from this encounter No History of Present Illness Recorded Social History No Social History Recorded - Smoking Status Unknown Procedures and Surgical History Includes: Procedures from this encounter Procedures Code Diagnosis Performing Provider Service L ocation Service Date Hormone implant - removal, left arm Area was cleaned with alcohol. 1 cc of Lidocaine 1 % plus epinephrine was injected underneath the tip of the Nexplanon la nena that is closest to the elbow. I pressed down on the end of the implant closest to the axilla and with a 10 blade made a 0.3 cm incision parallel to Nexplanon la nena. Nexplanon was gently pushed toward the incision until the tip was visible. The implant was grasped with forceps and gently pulled out. Nexplanon removed without difficulty. Steri-strip applied to the area along with a pressure bandage with sterile gauze. Patient instructed in wound care and signs of infection reviewed Last Documented On 8 10:06AM ; [facility] Etonogestrel implant - insertion Last Documented On 8 10:04AM ; [facility] test was negative Last Documented On 8 10:07AM ; [facility] Surgical History Last Updated Surgical / procedural history tubes in e ar ~surg on kidney 10/31/2017 Last Documented On 8 10:28AM ; [facility] Medical History Includes: Medical History addressed during this encounter Description Last Updated tubes in ears as baby ~age 6 &11 kidney reflux 10/31/2017 Last Documented On 8 10:28AM ; [facility] Asthma inhaler prn 10/31/2017 Last Documented On 8 10:28AM ; [facility] 1 10/31/2017 Last Documented On 8 10:28AM ; [facility] History of Gardasil had with peds Dr Cristin martinez 10/31/2017 Last Documented On 8 10:28AM ; [facility] Para 1 10/31/2017 Last Documented On 8 10:28AM ; [facility] Sexually active 10/31/2017 Last Documented On 8 10:28AM ; [facility] Family History Includes: Family History addressed during this encounter Description Last Updated Family history of Cancer lung, breast Last Documented On 8 10:28AM ; [facility] Family history of heart disease MGF 10/20 Last Documented On 8 10:28AM ; [facility] Family history of pure hypercholesterole harjinder mother 10/31/2017 Last Documented On 8 10:28AM ; [facility] Family history unchanged 10/31/2017 Last Documented On 8 10:28AM ; [facility] Family medical history of high blood pre ssure 10/31/2017 Last Documented On 8 10:28AM ; [facility] Family medical history of High Cholester ol MGF 10/31/2017 Last Documented On 8 10:28AM ; [facility] Maternal grandfather's history of family history of heart disease MGF 10/31/2017 Last Documented On 8 10:28AM ; [facility] Maternal history of pure hypercholestero lemia mother 10/31/2017 Last Documented On 8 10:28AM ; [facility] Review of Systems Includes: Review of Systems from this encounter No Review of Systems Recorded Mental Status Includes: Mental Status from this [...] Active Last Documented On 10/14/2017 9:20AM ; [facility] Note: Duracef Encounters Encounter Provider Location Date Check-In Time Check-Out Time Diagnosis PROCEDURE OFFICE RIGO BUCIO [facility] CHILD AND ADOLESCENT THERAPIST 11/01/19 18 10:02AM 10:33AM Contraceptive Surveillance Clinical Notes Includes: Clinical Notes from this encounter No Clinical Notes Recorded
--- OUTSIDE RECORDS SUMMARY | 2024-07-01 11:41 | XMS_ITS | Referral Summary ---
Author Organization [facility] Address [address] [place] [address] Care Team Providers Care Application Tester Name Role Phone No, Physician Primary Care Provider Encounters Date Type Department Care Team Description 05/04/2024 10:35 AM CURB WORKER - 05/04/2024 3:53 PM CURB WORKER Emergency [facility] Emergency Department [address] [place] [address] Gian Damian Jr., MD Diarrhea, unspecified type (Primary Dx); Lumbar strain, initial encounter; Dental cavities; Palpitations; Dehydration Discharge Disposition: Discharge to home or self care from Last 3 Months Allergies Active Allergy Reactions Criticality Noted Date Comments Cefadroxil Hives Reaction: HIVES Medications hydrOXYzine (ATARAX) 25 mg tablet Take 1 tablet (25 mg total) by mouth 4 (four) times a day as needed for itching or anxiety (congestion) 20 tablet 05/04/2024 Active loperamide (IMODIUM) 2 mg capsuleIndicati ons:diarrhea Take 1 capsule (2 mg total) by mouth 4 (four) times a day as needed for diarrhea 20 capsule 05/04/2024 Active Social History Tobacco Use Types Packs/Day Years Used Date Smoking Tobacco: Former Personal Safety Answer Date Recorded Have you ever been in or are you currently in a harmful physical or emotional relationship or is someone making you feel afraid or unsafe? Denies 05/04/2024 Comments Unknown Sex and Gender Information Value Date Recorded Sex Assigned at Not on file Legal Sex Female 10:06 PM CURB WORKER Gender Identity Not on file Sexual Orientation Not on file Last Filed Vital Signs Vital Sign Reading Time Taken Comments Blood Pressure 131/75 05/04/2024 3:52 PM CURB WORKER Pulse 69 05/04/2024 3:52 PM CURB WORKER Temperature 36.7 C (98.1 F) 05/04/2024 9:22 AM CURB WORKER Respiratory Rate 16 05/04/2024 3:52 PM CURB WORKER Oxygen Saturation 97% 05/04/2024 9:22 AM CURB WORKER Inhaled Oxygen Concentration - - Weight 67.1 kg (148 lb) 05/04/2024 9:23 AM CURB WORKER Height 160 cm (5' 3 ) 05/04/2024 9:23 AM CURB WORKER Body Mass Index 26.22 05/04/2024 9:23 AM CURB WORKER Plan of Treatment Not on file Procedures Procedure Name Priority Date/Time Associated Diagnosis Comments URINALYSIS, MICROSCOPIC ONLY STAT 05/04/2024 11:36 AM CURB WORKER DRUGS OF ABUSE SCREEN, URINE WITHOUT CONFIRMATION STAT 05/04/2024 11:36 AM CURB WORKER URINALYSIS AND REFLEX TO MICROSCOPIC STAT 05/04/2024 11:36 AM CURB WORKER CREATINE KINASE (CK), TOTAL STAT 05/04/2024 11:29 AM CURB WORKER EGFR STAT 05/04/2024 11:26 AM CURB WORKER DIFFERENTIAL AUTO STAT 05/04/2024 11: 26 AM CURB WORKER THYROID FUNCTION CASCADE STAT 05/04/2024 11:26 AM CURB WORKER LIPASE STAT 05/04/2024 11:26 AM CURB WORKER COMPREHENSIVE METABOLIC PANEL STAT 05/04/2024 11:26 AM CURB WORKER CBC WITH AUTO DIFFERENTIAL STAT 05/04/2024 11:26 AM CURB WORKER RESPIRATORY PATHOGEN PANEL Routine 05/04/2024 11:26 AM CURB WORKER POCT RAPID HIV ANTIBODY COMMUNITY SCREENING-RAHUL ELIGIBLE STAT 05/04/2024 11:21 AM CURB WORKER POCT HCG, URINE Routine 05/04/2024 11:16 AM CURB WORKER ECG 12-LEAD STAT 05/04/2024 9:16 AM CURB WORKER from Last 3 Months Results * (ABNORMAL) Urinalysis reflex to microscopic (05/04/2024 11:36 AM CURB WORKER) Color, ur Straw Yellow Clarity, ur Clear Clear [facility] Specific gravity, ur 1.016 1.003 - 1.030 [facility] pH, urine 6.0 [facility] Comment: Interpretive Data U rine pH is affected by diet, medications, systemic acid-base disturbances, and renal tubular function. pH may affect urinary stone formation. For example, urine pH below 6.0 may help reduce the tendency for calcium phosphate stones and pH greater than 6.0 may reduce the tendency for uric acid stone formation. Source: [facility] [place] Current Interpretive Data was last revised on 2017 Protein, ur ql Negative Negative [facility] Glucose, ur ql Negative Negative [facility] Ketones, ur 2+(A) Negative [facility] Bilirubin, ur Negative Negative [facility] Blood, ur Trace(A) Negative [facility] Urobilinogen, ur <2.0 <2.0 mg/dL [facility] Nitrite, ur Negative Negative [facility] Leukocyte esterase, ur Negative Negative [facility] UA reflex comment Reflex to microscopic UA will be performed. [facility] Urine 05/04/2024 11:3 6 AM CURB WORKER 05/04/2024 11:41 AM CURB WORKER us Gian Damian Jr., MD LAB URINE ORDERABLES F inal Result [facility] Department [place] [address] * (ABNORMAL) Drugs of Abuse Screen, Urine without Confirmation (05/04/2024 11:36 AM CURB WORKER) Amphetamine, ur Not Detected CutOff 500ng/mL Comment: Interpretive Data - Amphetamines: Samples containing greater than 500 ng/mL d-methamphetamine or other cross-reacting amphetamine compounds are reported as positive. Amphetamine immunoassays are subject to significant false positive rates due to cross-reactivity of non-amphetamine drugs. Confirmatory testing required for definitive results. Current Interpretive Data was last reviewed 2022. Barbiturates, ur Not Detected CutOff 200ng/mL [facility] Comment: Interpretive Data - Barbiturates: Samples containing greater than 200 ng/mL secobarbital or other cross-reacting barbiturate compounds are reported as positive. False positive and false negative results are possible. Confirmatory testing required for definitive results. Current Interpretive Data was last reviewed 2022. Benzodiazepines, ur Screen Positive, presumptive (A) CutOff 100ng/mL [facility] Comment: Interpretive Data - Benzodiazepines: Samples containing greater than 100 ng/mL nordiazepam or other cross-reacting compounds are reported as positive. False positive and false negative results are possible. Confirmatory testing required for definitive results. Current Interpretive Data was last reviewed 2022. Cannabinoids, ur Screen Positive, presumptive (A) CutOff 50 ng/mL [facility] Comment: Interpretive Data - Cannabinoids: Samples containing greater than 50 ng/mL delta-9 THC -COOH or other cross- reacting compounds are reported as positive. False positive and false negative results are possible. Confirmatory testing required for definitive results. Current Interpretive Data was last reviewed 2022. Cocaine, ur Not Detected CutOff 150ng/mL [facility] Comment: Interpretive Data - Cocaine: Samples containing greater than 150 ng/mL benzoylecgonine or other cross- reacting compounds are reported as positive. False positive and false negative results are possible. Confirmatory testing required for definitive results. Current Interpretive Data was last reviewed 2022. Fentanyl, Ur Not Detected CutOff 5 ng/mL [facility] Comment: Interpretive Data - Fentanyl: Samples containing greater than 5 ng/mL norfentanyl, fentanyl, or other cross-reacting fentanyl compounds are reported as positive. False positive and false negative results are possible. Confirmatory testing required for definitive results. Current Interpretive Data was last reviewed 2023. Methadone, ur Not Detected CutOff 300ng/mL [facility] Comment: Interpretive Data - Methadone: Samples containing greater than 300 ng/mL d,l-methadone or other cross-reacting compounds are reported as positive. False positive and false negative results are possible. Confirmatory testing required for definitive results. Current Interpretive Data was last reviewed 2022. Opiates, ur Not Detected CutOff 300ng/mL [facility] Comment: Interpretive Data - Opiates: Samples containing greater than 300 ng/mL morphine or other cross-reacting compounds are reported as positive. False positive and false negative results are possible. Confirmatory testing required for definitive results. Current Interpretive Data was last reviewed 2022. Oxycodone, ur Not Detected CutOff 100ng/mL [facility] Comment: Interpretive Data - Oxycodone: Samples containing greater than 100 ng/mL oxycodone or other cross-reacting compounds are reported as positive. False positive and false negative results are possible. Confirmatory testing required for definitive results. Current Interpretive Data was last reviewed 2022. Phencyclidine, ur Not Detected CutOff 25 ng/mL [facility] Comment: Interpretive Data - Phencyclidine: Samples containing greater than 25 ng/mL phencyclidine or other cross-reacting compounds are reported as positive. False positive and false negative results are possible. Confirmatory testing required for definitive results. Current Interpretive Data was last reviewed 2022. Urine Creatinine 119 mg/dL [facility] Comment: Interpretive Data Urine Creatinine: < 10 mg/dL is extremely dilute = or > 10 but < 20 mg/dL is dilute = or > 20 mg/dL is normal Current Interpretive Data was last revised on 2017. Urine 05/04/2024 11:3 6 AM CURB WORKER 05/04/2024 11:56 AM CURB WORKER Narrative [facility] - 05/04/2024 12:27 PM CURB WORKER Drug of Abuse screening is performed by immunoassay for medical purposes only. This is not to be used for Pain Management purposes. us Gian Damian Jr., MD LAB URINE ORDERABLES F inal Result [facility] [place] [address] * (ABNORMAL) Urinalysis, microscopic only (05/04/2024 11:36 AM CURB WORKER) [facility] WBC, ur 0-5 0 - 5 /HPF RBC, ur 0-2 0 - 2 /HPF [facility] Epithelial cells, squamous, ur 1-5 0 - 5 /HPF [facility] Bacteria, ur 1+(A) [facility] Mucous, ur Present(A) [facility] Urine 05/04/2024 11:3 6 AM CURB WORKER 05/04/2024 11:41 AM CURB WORKER us Gian Damian Jr., MD LAB URINE ORDERABLES F inal Result Performing Organization Address City/[facility] Co de Phone Number [facility] [place] [address] * Creatine kinase (CK), total (05/04/2024 11:29 AM CURB WORKER) [facility] CK 58 30 - 200 Units/L Blood 05/04/2024 11:2 9 AM CURB WORKER 05/04/2024 11:56 AM CURB WORKER us Gian Damian Jr., MD LAB BLOOD ORDERABLES F inal Result Performing Organization Address City/[facility] Co de Phone Number [facility] Department [place] [address] * eGFR (05/04/2024 11:26 AM CURB WORKER) [facility] eGFR >90 >=60 mL/min/1. 73 m2 Comment: Interpretive Data Reference Interval Normal >/= 90 mL/min/1.73m2 Mildly decreased* 60 - 89 mL/min/1.73m2 Mildly to moderately decreased 45 - 59 mL/min/1.73m2 Moderately to severely decreased 30 - 44 mL/min/1.73m2 Severely decreased 15 - 29 mL/min/1.73m2 Kidney Failure < 15 mL/min/1.73m2 *Relative to young adult level Estimated glomerular filtration rate is determined by the 2020 CKD-EPI equation recommended by the National Kidney Foundation (A Unifying Approach to GFR Estimation: Recommendations of the NKF-ASK Task Force on Reassessing the Inclusion of Race in Diagnosing Kidney Disease, JASN 2020). The CKD-EPI equation should not be used for patients with unstable renal function and has not been validated in children and those over 70. Current interpretive data was last reviewed 2021. Blood 05/04/2024 11:2 6 AM CURB WORKER 05/04/2024 11:56 AM CURB WORKER us Gian Damian Jr., MD LAB BLOOD ORDERABLES F inal Result [facility] [place] [address] * (ABNORMAL) Differential, auto (05/04/2024 11:26 AM CURB WORKER) Neutrophil abs 9.0(H) 1.5 - 6.5 K/cumm Imm gran abs 0.0 0.0 - 0.1 K/cumm [facility] Lymphocyte abs 2.8 0.8 - 3.3 K/cumm [facility] Monocyte abs 0.6 0.2 - 0.8 K/cumm [facility] Eosinophil abs 0.0 0.0 - 0.5 K/cumm [facility] Basophil abs 0.1 0.0 - 0.1 K/cumm [facility] Neutrophil pct 71.7 % [facility] Comment: Interpretive Data Percent cell count reference ranges are not reported, since discordance with absolute values may lead to misinterpretation of CBC data. Current Interpretive Data was last revised on 2017. Imm gran pct 0.3 % [facility] Comment: Interpretive Data Percent cell count reference ranges are not reported, since discordance with absolute values may lead to misinterpretation of CBC data. Current Interpretive Data was last revised on 2017. Lymphocyte pct 22.6 % [facility] Comment: Interpretive Data Percent cell count reference ranges are not reported, since discordance with absolute values may lead to misinterpretation of CBC data. Current Interpretive Data was last revised on 2017. Monocyte pct 4.7 % [facility] Comment: Interpretive Data Percent cell count reference ranges are not reported, since discordance with absolute values may lead to misinterpretation of CBC data. Current Interpretive Data was last revised on 2017. Eosinophil pct 0.2 % [facility] Comment: Interpretive Data Percent cell count reference ranges are not reported, since discordance with absolute values may lead to misinterpretation of CBC data. Current Interpretive Data was last revised on 2017. Basophil pct 0.5 % [facility] Comment: Interpretive Data Percent cell count reference ranges are not reported, since discordance with absolute values may lead to misinterpretation of CBC data. Current Interpretive Data was last revised on 2017. Blood 05/04/2024 11:2 6 AM CURB WORKER 05/04/2024 11:56 AM CURB WORKER Gian Damian Jr., MD LAB BLOOD ORDERABLES F inal Result Performing Organization Address City/[facility]/ZIP Co de Phone Number [facility] [place] [address] * Thyroid Function [place] (05/04/2024 11:26 AM CURB WORKER) Pathologist [facility] TSH 1.11 0.30 - 4.20 mcIUnit/mL Blood 05/04/2024 11:2 6 AM CURB WORKER 05/04/2024 11:56 AM CURB WORKER Gian Damian Jr., MD LAB BLOOD ORDERABLES F inal Result [facility] Department [place] [address] * Respiratory pathogen panel Nasopharyngeal (05/04/2024 11:26 AM CURB WORKER) Pathologist [facility] Influenza A RNA Not Detected Not Detected Influenza B RNA Not Detected Not Detected [facility] RSV RNA Not Detected Not Detected [facility] COVID-19 RNA Not Detected Not Detected [facility] Coronavirus 229E RNA Not Detected Not Detected [facility] Coronavirus HKU1 RNA Not Detected Not Detected [facility] Coronavirus NL63 RNA Not Detected Not Detected [facility] Coronavirus OC43 RNA Not Detected Not Detected [facility] Adenovirus DNA Not Detected Not Detected [facility] Metapneumovirus RNA Not Detected Not Detected [facility] Rhinovirus/Enterov irus RNA Not Detected Not Detected [facility] Parainfluenza 1 RNA Not Detected Not Detected [facility] Parainfluenza 2 RNA Not Detected Not Detected [facility] Parainfluenza 3 RNA Not Detected Not Detected [facility] Parainfluenza 4 RNA Not Detected Not Detected [facility] B. pertussis DNA Not Detected Not Detected [facility] B. parapertussis DNA Not Detected Not Detected [facility] C. pneumoniae DNA Not Detected Not Detected [facility] M. pneumoniae DNA Not Detected Not Detected [facility] Nasopharyngeal 05/04/2024 11 :26 AM CURB WORKER 05/04/2024 11:48 AM CURB WORKER Narrative [facility] - 05/04/2024 1:13 PM CURB WORKER Is the Patient experiencing symptoms consistent with COVID?->Yes Surveillance testing for transplant patient?->No Interpretive Data The [employer] FilmArray Respiratory Panel (RP2.1) assay is a multiplexed real-time PCR based nucleic acid test capable of simultaneous qualitative detection and identification of multiple respiratory viral and bacterial nucleic acids, including SARS Coronavirus 2 (the causative agent of COVID-19). The following bacteria, viruses and virus subtypes can be identified using the FilmArray RP2.1 assay: Bordetella pertussis, Bordetella parapertussis, Chlamydia pneumoniae, Mycoplasma pneumoniae, Adenovirus, SARS Coronavirus 2, seasonal coronaviruses (Coronavirus HKU1, Coronavirus NL63, Coronavirus 229E, and Coronavirus OC43), Influenza A, Influenza A subtype H1, Influenza A subtype H3, Influenza A subtype 2009 H1, Influenza B, Metapneumovirus, Parainfluenza 1, Parainfluenza 2, Parainfluenza 3, Parainfluenza 4, RSV, Rhinovirus/Enterovirus. Due to the genetic similarity between human Rhinovirus and Enterovirus, the FilmArray RP2.1 assay cannot reliably differentiate them. Coronavirus OC43 may cross-react with some isolates of Coronavirus HKU1. A dual positive result may be due to cross-reactivity or may indicate a co- infection. The detection and identification of specific viral and bacterial nucleic acids from individuals exhibiting signs and symptoms of a respiratory infection aids in the diagnosis of respiratory infection if used in conjunction with other clinical and epidemiological information. The results of this test should not be used as the sole basis for diagnosis, treatment, or other management decisions. Negative results in the setting of a respiratory illness may be due to infection with pathogens that are not detected by this test. Positive results do not rule out infection/co-infection with other organisms. The agent(s) detected by the FilmArray RP2.1 may not be the definite cause of disease. Additional testing (lab, imaging, etc.) may be necessary when evaluating a patient with possible respiratory tract infection. The FilmArray RP2.1 assay has FDA clearance for testing of SPRING FORGER swabs. The performance of additional specimen types has been assessed by the performing laboratory. The performance characteristics of this assay have been determined by [facility]. Current interpretive data was last revised on 22. us Gian Damian Jr., MD LAB MICROBIOLOGY - GEN ERAL ORDERABLES Final Result [facility] [place] [address] * (ABNORMAL) CBC with auto differential (05/04/2024 11:26 AM CURB WORKER) [facility] WBC 12.5(H) 3.8 - 9.9 K/cumm Hgb 13.9 11.9 - 15.5 g/dL [facility] Hct 41.0 35.6 - 45.5 % [facility] Plt 335 150 - 400 K/cumm [facility] MPV 11.5 9.1 - 12.3 fL [facility] RBC 4.68 3.90 - 5.20 M/cumm [facility] MCV 87.6 81.3 - 96.4 fL [facility] MCH 29.7 27.1 - 33.3 pg [facility] MCHC 33.9 32.3 - 35.7 g/dL [facility] RDW CV 12.0 11.1 - 14.9 % [facility] RDW SD 38.6 35.7 - 48.1 fL [facility] NRBC abs 0.00 0.00 - 0.01 K/cumm [facility] Blood 05/04/2024 11:2 6 AM CURB WORKER 05/04/2024 11:56 AM CURB WORKER Gian Damina Jr., MD LAB BLOOD ORDERABLES F inal Result [facility] [place] [address] * Lipase (05/04/2024 11:26 AM CURB WORKER) [facility] Lipase 48 10 - 99 Units/L Blood 05/04/2024 11:2 6 AM CURB WORKER 05/04/2024 11:56 AM CURB WORKER Gian Damian Jr., MD LAB BLOOD ORDERABLES F inal Result Performing Organization Address City/[facility] Co de Phone Number [facility] [place] [address] * Comprehensive metabolic panel (05/04/2024 11:26 AM CURB WORKER) [facility] Sodium 140 135 - 145 mmol/L Potassium, pl 3.5 3.3 - 4.9 mmol/L [facility] Chloride 103 97 - 110 mmol/L [facility] CO2 26 22 - 32 mmol/L [facility] Anion gap 11 2 - 15 mmol/L [facility] BUN 9 6 - 25 mg/dL [facility] Creatinine 0.65 0.60 - 1.10 mg/dL [facility] Glucose 95 70 - 199 mg/dL [facility] Comment: Interpretive Data Fasting glucose >/= 126 mg/dl is diagnostic for diabetes. Fasting is defined as no caloric intake for at least 8 hours. Fasting glucose between 100 mg/dl to 125 mg/dl is diagnostic of prediabetes. In a patient with classic symptoms of hyperglycemia or hyperglycemic crisis, a random glucose >/= 200 mg/dl is diagnostic for diabetes. In the absence of unequivocal hyperglycemia, results should be confirmed by repeat testing. The classification and Diagnosis of Diabetes Diabetes Care 2021; 46: S19-S40. Current interpretive data was last revised 2022. Calcium 9.9 8.5 - 10.3 mg/dL [facility] Bilirubin, total 0.6 0.1 - 1.2 mg/dL [facility] Protein, pl 7.7 6.5 - 8.5 g/dL [facility] Albumin 4.8 3.5 - 5.0 g/dL [facility] Alk phos 55 40 - 130 Units/L [facility] ALT 18 7 - 45 Units/L [facility] AST 14 10 - 45 Units/L [facility] Blood 05/04/2024 11:2 6 AM CURB WORKER 05/04/2024 11:56 AM CURB WORKER us Gian Damian Jr., MD LAB BLOOD ORDERABLES F inal Result [facility] [place] [address] * POCT Rapid HIV Antibody Community Screening-Rahul Eligible (05/04/2024 11:21 AM CURB WORKER) [facility] Rapid HIV, POC Negative Negative Lot Number [id number] QC Control Line Acceptable Blood 05/04/2024 11:2 1 AM CURB WORKER us Gian Damian Jr., MD POINT OF CARE TEST ORD ERABLES Final Result * POCT hCG, urine (05/04/2024 11:16 AM CURB WORKER) Pathologist [facility] HCG, ur, POC Negative Negative Lot Number [id number] QC Backgroud Clear Acceptable QC Control Line Acceptable Urine 05/04/2024 11:1 6 AM CURB WORKER us Gian Damian Jr., MD POINT OF CARE TEST ORD ERABLES Final Result * ECG 12-LEAD (05/04/2024 9:16 AM CURB WORKER) Narrative [facility] - 05/04/2024 9:16 AM CURB WORKER Yovani Burkett MD 05/04/2024 9:17 AM ECG 12 lead Date/Time: 05/04/2024 9:16 AM Performed by: Yovani Burkett MD Authorized by: Yovani Burkett MD Rate: ECG rate: 62 ECG rate assessment: normal Rhythm: Rhythm: sinus rhythm Ectopy: Ectopy: none QRS: QRS axis: Normal QRS intervals: Normal Conduction: Conduction: normal ST segments: ST segments: Normal T waves: T waves: normal Previous ECG: Previous ECG: Compared to current Date of previous EC11/26/2021 Similarity: No change Interpretation: Interpretation: No significant change Recommended Follow-up: Recommended follow up: further workup in the ED Procedure Note Yovani Burkett MD - 05/04/2024 9:16 AM CST Procedure ECG 12 lead Date/Time: 05/04/2024 9:16 AM Performed by: Yovani Burkett MD Authorized by: Yovani Burkett MD Rate: ECG rate: 62 ECG rate assessment: normal Rhythm: Rhythm: sinus rhythm Ectopy: Ectopy: none QRS: QRS axis: Normal QRS intervals: Normal Conduction: Conduction: normal ST segments: ST segments: Normal T waves: T waves: normal Previous ECG: Previous ECG: Compared to current Date of previous EC11/26/2021 Similarity: No change Interpretation: Interpretation: No significant change Recommended Follow-up: Recommended follow up: further workup in the ED Yovani Burkett MD 05/04/24 0917 us Yovani Burkett MD ECG ORDERABLES Final Resu lt [facility] from Last 3 Months Care Teams Application Tester Relationship Specialty Start Date End Date No, Physician PCP - General 12/16/21
--- OUTSIDE RECORDS SUMMARY | 2024-07-01 11:41 | XMS_ITS | Clinical Summary ---
Author Organization [facility] Address [address] [place] [phone] Phone Care Team Providers Care Scaling Machine Operator Name Role Phone Unavailable Unavailable Unavailable Reason for Visit and Chief Complaint 1 MONTH CHECK Problems Includes: Problems addressed during this encounter and other active Problems All Visits Onset Date Resolved Date Provider Condition S tatus Risk: Tobacco Use 10/14/2017 RIGO BUCIO KEILA GLASGOW Active Last Documented On 8 9:14AM ; [facility] Plan of Treatment No Plan of Treatment Recorded Assessments Includes: Assessments from this encounter No Assessments Recorded Medical Equipment - Implanted Devices Includes: Current Devices No Medical Equipment Recorded Medications Includes: Medications discussed during this encounter and other current Medications Current Medications (continue as prescribed) Nexplanon 68MG Subcutaneous Implant 10/31/2017 Provi misti: Diagnosis: Last Documented On 8 10:10AM By RIGO BUCIO JOSE ; [facility] Diflucan 150MG Oral Tablet 10/14/2017 Provider: Stephen BUCIO JOSE Diagnosis: One tablet daily Last Documented On 8 9:45AM By RIGO BUCIO GARETH ; [facility] Medications Administered Includes: Administered Medications from this encounter No Administered Medications Recorded Results Includes: Results discussed during this encounter No Results Recorded For Specified Dates History of Present Illness Includes: History of Present Illness from this encounter No History of Present Illness Recorded Social History No Social History Recorded - Smoking Status Unknown Medical History Includes: Medical History addressed during this encounter No Medical History Recorded Family History Includes: Family History addressed during this encounter No Family History Recorded Review of Systems Includes: Review of Systems from this encounter No Review of Systems Recorded Mental Status Includes: Mental Status from this encounter No Mental Status Recorded Functional Status Includes: Functional Status from this encounter No Functional Status Recorded Physical Exam Includes: Physical Exam from this encounter No Physical Exam Recorded Allergies Includes: Active Allergies Substance Type Reaction Onset Date Resolved Date Statu s Cefadroxil Allergy Skin Rashes / Eruption of skin, Hives / Urticaria 05/12/2009 Active Last Documented On 10/14/2017 9:20AM ; [facility] Note: Duracef Clinical Notes Includes: Clinical Notes from this encounter No Clinical Notes Recorded
--- OUTSIDE RECORDS SUMMARY | 2024-07-01 11:41 | XMS_ITS ---
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 History of Allergic Rhinitis 01/13/2009 Unknown TONG LUNDBERG MD Resolved Last Documented On 01/18/2010 8:51AM ; [facility] Note: was Closed. History of Renal Disease 01/13/2009 Unknown TONG GUTIERREZ MD Resolved Last Documented On 01/18/2010 8:51AM ; [facility] Note: was Closed. Respiratory Disorders 01/13/2009 Unknown TONG LUNDBERG MD Resolved Last Documented On 01/18/2010 8:51AM ; [facility] Note: was Closed. Tobacco Use 01/13/2009 Unknown TONG LUNDBERG MD Resolve d Last Documented On 01/18/2010 8:51AM ; [facility] Note: was Closed. Plan of Treatment Findings Encounter Date Ordered Clinical summary pro vided to patient PROCEDURE OFFICE with RIGO VILLARREAL-BC 10/31/2017 Last Documented On 8 10:28AM ; [facility] Ordered Clinical summary pro vided to patient NEW POLICE SPECIALIST EXAM with RIGO VILLARREAL-BC 10/14/2017 Last Documented On 8 9:37AM ; [facility] Ordered Clinical summary pro vided to patient IMPLANON with RIGO BUCIO [facility] 08/26/2014 Last Documented On 5 1:23PM ; [facility] Ordered Clinical summary pro vided to patient POLICE SPECIALIST EXAM with RIGO BUCIO [facility] 07/08/2014 Last Documented On 5 11:07AM ; [facility] Menses today. Declines STD testing POLICE SPECIALIST EXAM with RIGO BUCIO [facility] 06/20/2011 Last Documented On 2 3:24PM ; [facility] Enc condom use Annual xam ranjana manuel in May 2010 1 MONTH CHECK with SHANDA FRANCES [facility] 09/27/2009 Last Documented On 0 2:57PM ; [facility] Instructions to patient Instructions for patient : B reast Self Exam discussed Last Documented On 8 9:09AM ; [facility] Instructions for patient : K eep the area around the vulva dry. Allow the area to have exposure to air. Avoid irritants such as fabric softeners and perfumed soaps.~ Last Documented On 8 9:21AM ; [facility] Return to the clinic if cond ition worsens or new symptoms arise Last Documented On 8 9:20AM ; [facility] Advised d/c scented bath pro ducts Last Documented On 8 9:21AM ; [facility] ER/ Pain Precautions Last Documented On 8 9:20AM ; [facility] Gardasil information given a nd series encouraged Series completed! Last Documented On 8 9:11AM ; [facility] Safe sex counseling Last Documented On 8 9:11AM ; [facility] Instructions for patient : t he patient was instructed in the use and possible side effects of the medication prescribed. She is to maintain good hydration via p.o. fluids. We also discussed possible triggers for UTI and preventive measures Last Documented On 5 11:28AM ; [facility] Patient to call if fever or back pain Last Documented On 5 11:28AM ; [facility] Instructed to decrease carbo nation and caffeine Last Documented On 5 11:28AM ; [facility] Increase water po Last Documented On 5 11:28AM ; [facility] Instructions For Patient: go od handwashing and perineal care Last Documented On 5 11:28AM ; [facility] Safe sex counseling Last Documented On 5 11:25AM ; [facility] Instructions for patient : B reast Self Exam discussed Last Documented On 5 10:53AM ; [facility] Gardasil information given a nd series encouraged Series completed! Last Documented On 5 10:55AM ; [facility] Safe sex counseling Last Documented On 5 10:55AM ; [facility] Instructions for patient : B reast Self Exam discussed Last Documented On 2 3:10PM ; [facility] Gardasil information given a nd series encouraged had x 3 doses with peds Last Documented On 2 3:24PM ; [facility] Safe sex counseling Last Documented On 2 3:10PM ; [facility] Education and Decision Aids were provided during visit for: Smoking cessation advised Last Documented On 8 10:10AM ; [facility] Patient Education: Daily giovany cium and vitamin D Last Documented On 8 9:09AM ; [facility] Patient Education: weight be aring exercise Last Documented On 8 9:09AM ; [facility] Smoking cessation advised Last Documented On 8 9:11AM ; [facility] Candidiasis Vulvovaginitis I nformation Sheet Given Last Documented On 8 9:21AM ; [facility] Smoking cessation advised Last Documented On 5 11:27AM ; [facility] Patient Education: Daily giovany cium and vitamin D Last Documented On 5 10:53AM ; [facility] Patient Education: weight be aring exercise Last Documented On 5 10:53AM ; [facility] Patient Education: Daily giovany cium and vitamin D Last Documented On 2 3:10PM ; [facility] Patient Education: weight be aring exercise Last Documented On 2 3:10PM ; [facility] Assessments Includes: Assessments for all patient encounters Findings Encounter Date Contraceptive surveillance PROCEDURE OFFICE with RIGO A BUCIO [facility] 10/31/2017 Last Documented On 8 10:28AM ; [facility] Salena albicans vulvovaginitis NEW POLICE SPECIALIST EXAM wit h RIGO Alexis FORTUNATO [facility] 10/14/2017 Last Documented On 8 9:37AM ; [facility] NORMAL FEMALE EXAM NEW POLICE SPECIALIST EXAM with RIGO MAYEN SUZAN [facility] 10/14/2017 Last Documented On 8 9:37AM ; [facility] Contraceptive management RECHECK with RIGO Alexis KELLEN ANS [facility] 09/27/2014 Last Documented On 5 12:20PM ; [facility] Dysuria RECHECK with RIGO Vanesa FORTUNATO [facility] 09/27/2014 Last Documented On 5 12:20PM ; [facility] Contraceptive management IMPLANON with RIGO Vanesa Nahed MENDOZA [facility] 08/26/2014 Last Documented On 5 1:23PM ; [facility] Contraceptive surveillance IMPLANON with RIGO Alexis FORTUNATO [facility] 08/26/2014 Last Documented On 5 1:23PM ; [facility] NORMAL FEMALE EXAM POLICE SPECIALIST EXAM with RIGOALDAIR BUCIO Angela [facility] 07/08/2014 Last Documented On 5 11:07AM ; [facility] NORMAL FEMALE EXAM POLICE SPECIALIST EXAM with RIGO A FORTUNATO Miller [facility] 06/20/2011 Last Documented On 2 3:24PM ; [facility] Contraceptive surveillance IMPLANON with RIGO A FORTUNATO [facility] 05/18/2011 Last Documented On 2 3:42PM ; [facility] Contraceptive management: In sertion of IUD IUD INSERTION with SHANDA FRANCES [facility] 08/25/2009 Last Documented On 0 5:20PM ; [facility] Normal checkup (6 - 42 wk) RETURN OB EX AM with TONG LUNDBERG MD 06/30/2009 Last Documented On 0 3:09PM ; [facility] Normal checkup (6 - 42 wk) RETU RN OB EXAM with RIGO BUCIO NP-BC 06/22/2009 Last Documented On 0 3:45PM ; [facility] Normal checkup (6 - 42 wk) RETU RN OB EXAM with RIGO BUCIO NP-BC 06/09/2009 Last Documented On 0 3:43PM ; [facility] Normal checkup (6 - 42 wk) RETURN OB EX AM with TONG LUNDBERG MD 05/27/2009 Last Documented On 0 3:32PM ; [facility] Normal checkup (6 - 42 wk) RETU RN OB EXAM with RIGO BUCIO [facility]- 05/12/2009 Last Documented On 0 4:23PM ; [facility] Normal checkup (6 - 42 wk) RETU RN OB EXAM with RIGO BUCIO [facility]- 04/13/2009 Last Documented On 0 10:05AM ; [facility] Normal checkup (6 - 42 wk) RETU RN OB EXAM with RIGO BUCIO [facility]- 02/11/2009 Last Documented On 0 10:10AM ; [facility] Instructions Includes: Instructions for all patient encounters Instructions to patient Instructions for patient : B reast Self Exam discussed Last Documented On 8 9:09AM ; [facility] Instructions for patient : K eep the area around the vulva dry. Allow the area to have exposure to air. Avoid irritants such as fabric softeners and perfumed soaps.~ Last Documented On 8 9:21AM ; [facility] Return to the clinic if cond ition worsens or new symptoms arise Last Documented On 8 9:20AM ; [facility] Advised d/c scented bath pro ducts Last Documented On 8 9:21AM ; [facility] ER/ Pain Precautions Last Documented On 8 9:20AM ; [facility] Gardasil information given a nd series encouraged Series completed! Last Documented On 8 9:11AM ; [facility] Safe sex counseling Last Documented On 8 9:11AM ; [facility] Instructions for patient : t he patient was instructed in the use and possible side effects of the medication prescribed. She is to maintain good hydration via p.o. fluids. We also discussed possible triggers for UTI and preventive measures Last Documented On 5 11:28AM ; [facility] Patient to call if fever or back pain Last Documented On 5 11:28AM ; [facility] Instructed to decrease carbo nation and caffeine Last Documented On 5 11:28AM ; [facility] Increase water po Last Documented On 5 11:28AM ; [facility] Instructions For Patient: go od handwashing and perineal care Last Documented On 5 11:28AM ; [facility] Safe sex counseling Last Documented On 5 11:25AM ; [facility] Instructions for patient : B reast Self Exam discussed Last Documented On 5 10:53AM ; [facility] Gardasil information given a nd series encouraged Series completed! Last Documented On 5 10:55AM ; [facility] Safe sex counseling Last Documented On 5 10:55AM ; [facility] Instructions for patient : B reast Self Exam discussed Last Documented On 2 3:10PM ; [facility] Gardasil information given a nd series encouraged had x 3 doses with peds Last Documented On 2 3:24PM ; [facility] Safe sex counseling Last Documented On 2 3:10PM ; [facility] Education and Decision Aids were provided during visit for: Smoking cessation advised Last Documented On 8 10:10AM ; [facility] Patient Education: Daily giovany cium and vitamin D Last Documented On 8 9:09AM ; [facility] Patient Education: weight be aring exercise Last Documented On 8 9:09AM ; [facility] Smoking cessation advised Last Documented On 8 9:11AM ; [facility] Candidiasis Vulvovaginitis I nformation Sheet Given Last Documented On 8 9:21AM ; [facility] Smoking cessation advised Last Documented On 5 11:27AM ; [facility] Patient Education: Daily giovany cium and vitamin D Last Documented On 5 10:53AM ; [facility] Patient Education: weight be aring exercise Last Documented On 5 10:53AM ; [facility] Patient Education: Daily giovany cium and vitamin D Last Documented On 2 3:10PM ; [facility] Patient Education: weight be aring exercise Last Documented On 2 3:10PM ; [facility] Medical Equipment - Implanted Devices Includes: Current and historical Devices No Medical Equipment Recorded Medications Includes: Current and historical Medications Current Medications (continue as prescribed) Nexplanon 68MG Subcutaneous Implant 10/31/2017 Provi misti: Diagnosis: Last Documented On 8 10:10AM By RIGO BLAKELY ; [facility] Diflucan 150MG Oral Tablet 10/14/2017 Provider: Stephen BLAKELY Diagnosis: One tablet daily Last Documented On 8 9:45AM By RIGO BUCIO JOSE ; [facility] Past Medications on file Bactrim DS 800-160 MG Tablet 10/18/2014 - 10/14/2017 P rovider: RIGO BLAKELY Diagnosis: DYSURIA One tablet twice a day Last Documented On 10/14/2017 9:20AM By MALKA SAENZ ; [facility] Diflucan 150 MG Tablet 09/27/2014 - 10/14/2017 Provide r: RIGO VILLARREAL-BC Diagnosis: One tablet daily Last Documented On 10/14/2017 9:20AM By MALKA SAENZ ; [facility] Bactrim DS 800-160 MG Tablet 09/27/2014 - 10/18/2014 P rovider: RIGO BLAKELY Diagnosis: DYSURIA One tablet twice a day Last Documented On 5 11:03AM By RIGO BLAKELY ; [facility] Nexplanon 68 MG Implant 08/26/2014 - 10/31/2017 Provid er: Diagnosis: Last Documented On 8 10:07AM By RIGO BLAKELY ; [facility] Implanon 68 MG SC IMPL 05/18/2011 - 08/26/2014 Provide r: Diagnosis: Last Documented On 5 1:06PM By RIGO BUCIO [facility] ; [facility] Mirena (52 MG) 20 MCG/24HR IU IUD 08/25/2009 - 05/18/2011 Provider: [facility]DA ALMEIDA [facility] Diagnosis: Last Documented On 2 3:27PM By RIGO BUCIO [facility] ; [facility] Macrobid 100 MG OR CAPS 05/10/2009 - 05/17/2009 Provid er: Diagnosis: Last Documented On 05/12/2009 9:33AM By KRISTI OROSCO ; [facility] Reglan 10 MG OR TABS 01/26/2009 - 02/16/2009 Provider: Diagnosis: Last Documented On 05/12/2009 9:34AM By KRISTI OROSCO ; [facility] PX Childrens Vitamin OR CHEW 01/13/2009 - 01/08/2010 P rovider: Diagnosis: Last Documented On 05/12/2009 9:32AM By KRISTI OROSCO ; [facility] Zofran 4 MG OR TABS 01/03/2009 - 01/19/2009 Provider: Diagnosis: 1 q 4 hr Last Documented On 05/12/2009 9:36AM By KRISTI OROSCO ; [facility] Medications Administered Includes: Administered Medications in patient's chart No Administered Medications Recorded Results Includes: Results from 07/02/2023 through 07/01/2024 No Results Recorded For Specified Dates History of Present Illness History of Present Illness not supported for this document type No History of Present Illness Recorded Social History No Social History Recorded - Smoking Status Unknown Procedures and Surgical History Surgical History Last Updated Surgical / procedural history tubes in e ar ~surg on kidney 10/31/2017 Last Documented On 8 10:28AM ; [facility] Medical History Includes: Medical History in patient's chart Description Last Updated tubes in ears as baby ~age 6 &11 kidney reflux 10/31/2017 Last Documented On 8 10:28AM ; [facility] Asthma inhaler prn 10/31/2017 Last Documented On 8 10:28AM ; [facility] 1 10/31/2017 Last Documented On 8 10:28AM ; [facility] History of Gardasil had with peds Dr Cristin martinez 10/31/2017 Last Documented On 8 10:28AM ; [facility] Para 1 10/31/2017 Last Documented On 8 10:28AM ; [facility] Sexually active 10/31/2017 Last Documented On 8 10:28AM ; [facility] Family History Includes: Family History in patient's chart Description Last Updated Family history of Cancer lung, breast Last Documented On 8 10:28AM ; [facility] Family history of heart disease MGF 10/20 Last Documented On 8 10:28AM ; [facility] Family history of pure hypercholesterole harjinder mother 10/31/2017 Last Documented On 8 10:28AM ; [facility] Family history unchanged 10/31/2017 Last Documented On 8 10:28AM ; [facility] Family medical history of high blood pre ssure 10/31/2017 Last Documented On 8 10:28AM ; [facility] Family medical history of High Cholester ol MGF 10/31/2017 Last Documented On 8 10:28AM ; [facility] Maternal grandfather's history of family history of heart disease MGF 10/31/2017 Last Documented On 8 10:28AM ; [facility] Maternal history of pure hypercholestero lemia mother 10/31/2017 Last Documented On 8 10:28AM ; [facility] Review of Systems Review of Systems not supported for this document type No Review of Systems Recorded Mental Status No Mental Status Recorded Functional Status No Functional Status Recorded Physical Exam Physical Exam not supported for this document type No Physical Exam Recorded Allergies Includes: Active, inactive, and resolved Allergies Substance Type Reaction Onset Date Resolved Date Statu s Cefadroxil Allergy Skin Rashes / Eruption of skin, Hives / Urticaria 05/12/2009 Active Last Documented On 10/14/2017 9:20AM ; [facility] Note: Duracef Clinical Notes Includes: Signed Clinical Notes starting from 05/11/2022 No Clinical Notes Recorded
--- OUTSIDE RECORDS SUMMARY | 2024-07-01 11:41 | XMS_ITS ---
Care Plan - [facility] Created on: July 01, 2024 TAM KING : 1990 Sex: Female Author Organization [facility] Address [address] [place] [phone] Phone Care Team Providers Care Legal Document Assistant Name Role Phone Unavailable Unavailable Unavailable
--- OUTSIDE RECORDS SUMMARY | 2024-07-01 11:41 | XMS_ITS | Clinical Summary ---
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 Name Role Phone Unavailable Unavailable Unavailable Reason for Visit and Chief Complaint [Patient Encounter] Problems Includes: Problems addressed during this encounter and other active Problems All Visits Onset Date Resolved Date Provider Condition S tatus Risk: Tobacco Use 10/14/2017 RIGO BUCIO KEILA GLASGOW Active Last Documented On 8 9:14AM ; [facility] Plan of Treatment No Plan of Treatment Recorded Assessments Includes: Assessments from this encounter No Assessments Recorded Medical Equipment - Implanted Devices Includes: Current Devices No Medical Equipment Recorded Medications Includes: Medications discussed during this encounter and other current Medications Current Medications (continue as prescribed) Nexplanon 68MG Subcutaneous Implant 10/31/2017 Provi misti: Diagnosis: Last Documented On 8 10:10AM By RIGO BUCIO JOSE ; [facility] Diflucan 150MG Oral Tablet 10/14/2017 Provider: Stephen BLAKELY Diagnosis: One tablet daily Last Documented On 8 9:45AM By RIGO BUCIO JOSE ; [facility] Medications Administered Includes: Administered Medications from this [...] Active Last Documented On 10/14/2017 9:20AM ; [facility] Note: Duracef Encounters Encounter Provider Location Date Check-In Time Check- Out Time Diagnosis [Patient Encounter] RIGO BUCIO [facility] 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
--- OUTSIDE RECORDS SUMMARY | 2024-07-01 11:41 | XMS_ITS | Clinical Summary ---
Author Organization [facility] Address [address] [place] [address] Care Team Providers Care Display Specialist Name Role Phone No, Physician Primary Care Provider [phone] Allergies Active Allergy Reactions Criticality Noted Date [...] needed for diarrhea 20 capsule 05/04/2024 Active Encounters Date Type Department Care Team Description 05/04/2024 10:35 AM [facility] - 05/04/2024 3:53 PM [facility] Emergency [facility] Emergency Department [address] [place] [address] Gian Damian Jr., MD Diarrhea, unspecified type (Primary Dx); Lumbar strain, initial encounter; Dental cavities; Palpitations; Dehydration Discharge Disposition: Discharge to home or self care from Last 3 Months Social History Tobacco Use Types Packs/Day Years [...] on file Legal Sex Female 10:06 PM [employer] [facility] Gender Identity Not on file Sexual Orientation Not on file Obstetrics History Last Filed Vital Signs Vital Sign Reading Time Taken Comments Blood Pressure 131/75 05/04/2024 3:52 PM [facility] Pulse 69 05/04/2024 3:52 PM [employer] [facility] Temperature 36.7 C (98.1 F) 05/04/2024 9:22 AM [facility] Respiratory Rate 16 05/04/2024 3:52 PM [facility] Oxygen Saturation 97% 05/04/2024 9:22 AM [facility] [facility] [facility] Inhaled Oxygen Concentration - - Weight 67.1 kg (148 lb) 05/04/2024 9:23 AM [facility] Height 160 cm (5' 3 ) 05/04/2024 9:23 AM [facility] Body Mass Index 26.22 05/04/2024 9:23 AM [facility] Plan of Treatment Health Maintenance Due Date Last Done Comments Cervical Cancer Screening 1992 Depression Screening 1992 Hepatitis C Screening 1992 Varicella Vaccines (2 of 2 - 2-dose childhood series) 06/24/1998 04/01/1998 DTaP/Tdap/Td Vaccine (6 - Tdap) 10/23/2006 10/22/2006, 08/17/2006, 01/29/1997, Additional history exists Regular Well Visit/Exam 18-64 2010 Influenza Vaccine (#1) 2023 03/06/2004 Hepatitis B Screening Completed 07/11/1993 , 1992, 1992 Pneumococcal vaccine <65 Aged Out 05/07/2000 No longer eligible based on patient's age to complete this topic HPV Vaccines Completed 04/30/2007, 07/2006, 10/22/2006 Procedures Procedure Name Priority Date/Time Associated Diagnosis Comments URINALYSIS, MICROSCOPIC ONLY STAT 05/04/2024 11:36 AM [facility] S[facility]ER DRUGS OF ABUSE SCREEN, URINE WITHOUT CONFIRMATION STAT 05/04/2024 11:36 AM [employer] S[employer] URINALYSIS AND REFLEX TO MICROSCOPIC STAT 05/04/2024 11:36 AM [employer] [employer] SIL[facility]ER CREATINE KINASE (CK), TOTAL STAT 05/04/2024 11:29 AM [employer] S[employer] EGFR STAT 05/04/2024 11:26 AM [employer] SIL[facility]ER DIFFERENTIAL AUTO STAT 05/04/2024 11: 26 AM [employer] [employer] S[facility] THYROID FUNCTION CASCADE STAT 05/04/2024 11:26 AM [employer] S[employer]ER LIPASE STAT 05/04/2024 11:26 AM [employer] S[employer] COMPREHENSIVE METABOLIC PANEL STAT 05/04/2024 11:26 AM [facility] [employer] SIL[facility]ER CBC WITH AUTO DIFFERENTIAL STAT 05/04/2024 11:26 AM [facility] SIL[facility]ER RESPIRATORY PATHOGEN PANEL Routine 05/04/2024 11:26 AM [employer] SIL[facility]ER POCT RAPID HIV ANTIBODY COMMUNITY SCREENING-RAHUL ELIGIBLE STAT 05/04/2024 11:21 AM [facility] SIL[facility]ER POCT HCG, URINE Routine 05/04/2024 11:16 AM [facility] S[facility]ER ECG 12-LEAD STAT 05/04/2024 9:16 AM [facility] [facility] SIL[facility]ER from Last 3 Months Results * (ABNORMAL) Urinalysis reflex to microscopic (05/04/2024 11:36 AM [facility] [facility] SILVERER) Color, ur Straw Yellow Clarity, ur Clear Clear [facility] Specific gravity, ur 1.016 1.003 - 1.030 [facility] pH, urine 6.0 [facility] Comment: Interpretive Data U rine pH is affected by diet, medications, systemic acid-base disturbances, and renal tubular function. pH may affect urinary stone formation. For example, urine pH below 6.0 may help reduce the tendency for calcium phosphate stones and pH greater than 6.0 may reduce the tendency for uric acid stone formation. Source: [place] [employer] Current Interpretive Data was last revised on 2017 Protein, ur ql Negative Negative [facility] Glucose, ur ql Negative Negative [facility] Ketones, ur 2+(A) Negative [facility] Bilirubin, ur Negative Negative [facility] Blood, ur Trace(A) Negative [facility] Urobilinogen, ur <2.0 <2.0 mg/dL [facility] Nitrite, ur Negative Negative [facility] Leukocyte esterase, ur Negative Negative [facility] UA reflex comment Reflex to microscopic UA will be performed. [facility] Urine 05/04/2024 11:3 6 AM [facility] 05/04/2024 11:41 AM [employer] SIL[employer]ER us Gian Damian Jr., MD LAB URINE ORDERABLES F inal Result [facility] [place] [address] * (ABNORMAL) Drugs of Abuse Screen, Urine without Confirmation (05/04/2024 11:36 AM [facility] [facility]) Amphetamine, ur Not Detected [facility] 500ng/mL Comment: Interpretive Data - Amphetamines: Samples containing greater than 500 ng/mL d-methamphetamine or other cross-reacting amphetamine compounds are reported as positive. Amphetamine immunoassays are subject to significant false positive rates due to cross-reactivity of non-amphetamine drugs. Confirmatory testing required for definitive results. Current Interpretive Data was last reviewed 2022. Barbiturates, ur Not Detected CutOff 200ng/mL [facility] Comment: Interpretive Data - Barbiturates: Samples containing greater than 200 ng/mL secobarbital or other cross-reacting barbiturate compounds are reported as positive. False positive and false negative results are possible. Confirmatory testing required for definitive results. Current Interpretive Data was last reviewed 2022. Benzodiazepines, ur Screen Positive, presumptive (A) CutOff 100ng/mL [facility] Comment: Interpretive Data - Benzodiazepines: Samples containing greater than 100 ng/mL nordiazepam or other cross-reacting compounds are reported as positive. False positive and false negative results are possible. Confirmatory testing required for definitive results. Current Interpretive Data was last reviewed 2022. Cannabinoids, ur Screen Positive, presumptive (A) CutOff 50 ng/mL [facility] Comment: Interpretive Data - Cannabinoids: Samples containing greater than 50 ng/mL delta-9 THC -COOH or other cross- reacting compounds are reported as positive. False positive and false negative results are possible. Confirmatory testing required for definitive results. Current Interpretive Data was last reviewed 2022. Cocaine, ur Not Detected CutOff 150ng/mL [facility] Comment: Interpretive Data - Cocaine: Samples containing greater than 150 ng/mL benzoylecgonine or other cross- reacting compounds are reported as positive. False positive and false negative results are possible. Confirmatory testing required for definitive results. Current Interpretive Data was last reviewed 2022. Fentanyl, Ur Not Detected CutOff 5 ng/mL [facility] Comment: Interpretive Data - Fentanyl: Samples containing greater than 5 ng/mL norfentanyl, fentanyl, or other cross-reacting fentanyl compounds are reported as positive. False positive and false negative results are possible. Confirmatory testing required for definitive results. Current Interpretive Data was last reviewed 2023. Methadone, ur Not Detected CutOff 300ng/mL [facility] Comment: Interpretive Data - Methadone: Samples containing greater than 300 ng/mL d,l-methadone or other cross-reacting compounds are reported as positive. False positive and false negative results are possible. Confirmatory testing required for definitive results. Current Interpretive Data was last reviewed 2022. Opiates, ur Not Detected CutOff 300ng/mL [facility] Comment: Interpretive Data - Opiates: Samples containing greater than 300 ng/mL morphine or other cross-reacting compounds are reported as positive. False positive and false negative results are possible. Confirmatory testing required for definitive results. Current Interpretive Data was last reviewed 2022. Oxycodone, ur Not Detected CutOff 100ng/mL [facility] Comment: Interpretive Data - Oxycodone: Samples containing greater than 100 ng/mL oxycodone or other cross-reacting compounds are reported as positive. False positive and false negative results are possible. Confirmatory testing required for definitive results. Current Interpretive Data was last reviewed 2022. Phencyclidine, ur Not Detected CutOff 25 ng/mL [facility] Comment: Interpretive Data - Phencyclidine: Samples containing greater than 25 ng/mL phencyclidine or other cross-reacting compounds are reported as positive. False positive and false negative results are possible. Confirmatory testing required for definitive results. Current Interpretive Data was last reviewed 2022. Urine Creatinine 119 mg/dL [facility] Comment: Interpretive Data Urine Creatinine: < 10 mg/dL is extremely dilute = or > 10 but < 20 mg/dL is dilute = or > 20 mg/dL is normal Current Interpretive Data was last revised on 2017. Urine 05/04/2024 11:3 6 AM [facility] 05/04/2024 11:56 AM [employer] [facility] Narrative [facility] - 05/04/2024 12:27 PM [employer] [facility] Drug of Abuse screening is performed by immunoassay for medical purposes only. This is not to be used for Pain Management purposes. Gian Damian Jr., MD LAB URINE ORDERABLES F inal Result Performing Organization Address [facility] de Phone Number [facility] Department [place] [address] * (ABNORMAL) Urinalysis, microscopic only (05/04/2024 11:36 AM [facility] [facility]ER) WBC, ur 0-5 0 - 5 /HPF RBC, ur 0-2 0 - 2 /HPF [facility] Epithelial cells, squamous, ur 1-5 0 - 5 /HPF [facility] Bacteria, ur 1+(A) [facility] Mucous, ur Present(A) [facility] Urine 05/04/2024 11:3 6 AM [facility] 05/04/2024 11:41 AM [facility] [facility] SIL[facility]ER Gian Damian Jr., MD LAB URINE ORDERABLES F inal Result Performing Organization Address [facility] [[email or web address]] Co de Phone Number [facility] [place] [address] * Creatine kinase (CK), total (05/04/2024 11:29 AM [employer] [facility]IL[facility]) CK 58 30 - 200 Units/L Blood 05/04/2024 11:2 9 AM [facility] [facility] [facility] 05/04/2024 11:56 AM [employer] SIL[facility]ER Gian Damian Jr., MD LAB BLOOD ORDERABLES F inal Result Performing Organization Address [facility] de Phone Number [facility] Department [place] [address] * eGFR (05/04/2024 11:26 AM [facility] SIL[facility]ER) Pathologist [facility] eGFR >90 >=60 mL/min/1. 73 m2 Comment: [...] reviewed 2021. Blood 05/04/2024 11:2 6 AM [facility] [facility]ER 05/04/2024 11:56 AM [employer] SIL[facility]ER us Gian Damian Jr., MD LAB BLOOD ORDERABLES F inal Result Performing Organization Address [facility] [[email or web address]] Co de Phone Number [facility] [place] [address] * (ABNORMAL) Differential, auto (05/04/2024 11:26 AM [facility] SIL[facility]ER) Pathologist [facility] Neutrophil abs 9.0(H) 1.5 - 6.5 K/cumm Imm gran abs 0.0 0.0 - 0.1 K/cumm [facility] Lymphocyte abs 2.8 0.8 - 3.3 K/cumm [facility] Monocyte abs 0.6 0.2 - 0.8 K/cumm [facility] Eosinophil abs 0.0 0.0 - 0.5 K/cumm [facility] Basophil abs 0.1 0.0 - 0.1 K/cumm [facility] Neutrophil pct 71.7 % [facility] Comment: Interpretive Data Percent cell count reference ranges are not reported, since discordance with absolute values may lead to misinterpretation of CBC data. Current Interpretive Data was last revised on 2017. Imm gran pct 0.3 % [facility] Comment: Interpretive Data Percent cell count reference ranges are not reported, since discordance with absolute values may lead to misinterpretation of CBC data. Current Interpretive Data was last revised on 2017. Lymphocyte pct 22.6 % [facility] Comment: Interpretive Data Percent cell count reference ranges are not reported, since discordance with absolute values may lead to misinterpretation of CBC data. Current Interpretive Data was last revised on 2017. Monocyte pct 4.7 % [facility] Comment: Interpretive Data Percent cell count reference ranges are not reported, since discordance with absolute values may lead to misinterpretation of CBC data. Current Interpretive Data was last revised on 2017. Eosinophil pct 0.2 % [facility] Comment: Interpretive Data Percent cell count reference ranges are not reported, since discordance with absolute values may lead to misinterpretation of CBC data. Current Interpretive Data was last revised on 2017. Basophil pct 0.5 % [facility] Comment: Interpretive Data Percent cell count reference ranges are not reported, since discordance with absolute values may lead to misinterpretation of CBC data. Current Interpretive Data was last revised on 2017. Blood 05/04/2024 11:2 6 AM [employer] [facility] [facility] 05/04/2024 11:56 AM [employer] SIL[employer]ER us Gian Damian Jr., MD LAB BLOOD ORDERABLES F inal Result [facility] Department [place] [address] * Thyroid Function Polo (05/04/2024 11:26 AM [employer] SIL[facility]ER) TSH 1.11 0.30 - 4.20 mcIUnit/mL Blood 05/04/2024 11:2 6 AM [employer] [facility] [facility]IL[facility]ER 05/04/2024 11:56 AM [employer]IL[facility]ER Gian Damian Jr., MD LAB BLOOD ORDERABLES F inal Result [facility] Department [place] [address] * Respiratory pathogen panel Nasopharyngeal (05/04/2024 11:26 AM [employer]IL[facility]ER) [facility] Influenza A RNA Not Detected Not Detected Influenza B RNA Not Detected Not Detected [facility] RSV RNA Not Detected Not Detected [facility] COVID-19 RNA Not Detected Not Detected [facility] Coronavirus 229E RNA Not Detected Not Detected [facility] Coronavirus HKU1 RNA Not Detected Not Detected [facility] Coronavirus NL63 RNA Not Detected Not Detected [facility] Coronavirus OC43 RNA Not Detected Not Detected [facility] Adenovirus DNA Not Detected Not Detected [facility] Metapneumovirus RNA Not Detected Not Detected [facility] Rhinovirus/Enterov irus RNA Not Detected Not Detected [facility] Parainfluenza 1 RNA Not Detected Not Detected [facility] Parainfluenza 2 RNA Not Detected Not Detected [facility] Parainfluenza 3 RNA Not Detected Not Detected [facility] Parainfluenza 4 RNA Not Detected Not Detected [facility] B. pertussis DNA Not Detected Not Detected [facility] B. parapertussis DNA Not Detected Not Detected [facility] C. pneumoniae DNA Not Detected Not Detected [facility] M. pneumoniae DNA Not Detected Not Detected [facility] Nasopharyngeal 05/04/2024 11 :26 AM [facility] [facility] 05/04/2024 11:48 AM [employer] SIL[facility]ER Narrative [facility] - 05/04/2024 1:13 PM [employer]ER Is the Patient experiencing symptoms consistent with COVID?->Yes Surveillance testing for transplant patient?->No Interpretive Data The [employer] Respiratory Panel (RP2.1) assay is a multiplexed [...] assay has FDA clearance for testing of SPINDLE SANDER swabs. The performance of additional specimen types has been assessed by the performing laboratory. The performance characteristics of this assay have been determined by [facility] Molecular Infectious Disease Laboratory. Current interpretive data was last revised on 22. Gian Damian Jr., MD LAB MICROBIOLOGY - GEN ERAL ORDERABLES Final Result [facility] Department [place] [address] * (ABNORMAL) CBC with auto differential (05/04/2024 11:26 AM [employer]IL[facility]ER) [facility] WBC 12.5(H) 3.8 - 9.9 K/cumm Hgb 13.9 11.9 - 15.5 g/dL [facility] Hct 41.0 35.6 - 45.5 % [facility] Plt 335 150 - 400 K/cumm [facility] MPV 11.5 9.1 - 12.3 fL [facility] RBC 4.68 3.90 - 5.20 M/cumm [facility] MCV 87.6 81.3 - 96.4 fL [facility] MCH 29.7 27.1 - 33.3 pg [facility] MCHC 33.9 32.3 - 35.7 g/dL [facility] RDW CV 12.0 11.1 - 14.9 % [facility] RDW SD 38.6 35.7 - 48.1 fL [facility] NRBC abs 0.00 0.00 - 0.01 K/cumm [facility] Blood 05/04/2024 11:2 6 AM [employer] 05/04/2024 11:56 AM [employer] SIL[employer]ER us Gian Damian Jr., MD LAB BLOOD ORDERABLES F inal Result Performing Organization Address [facility] [[email or web address]] Co de Phone Number [facility] Department [place] [address] * Lipase (05/04/2024 11:26 AM [employer] SIL[facility]ER) [facility] Lipase 48 10 - 99 Units/L Blood 05/04/2024 11:2 6 AM [employer] SIL[facility]ER 05/04/2024 11:56 AM [employer] SIL[employer]ER Gian Damian Jr., MD LAB BLOOD ORDERABLES F inal Result Performing Organization Address [facility]/ZIP Co de Phone Number [facility] Department [place] [address] * Comprehensive metabolic panel (05/04/2024 11:26 AM [employer] SIL[facility]ER) Sodium 140 135 - 145 mmol/L Potassium, pl 3.5 3.3 - 4.9 mmol/L [facility] Chloride 103 97 - 110 mmol/L [facility] CO2 26 22 - 32 mmol/L [facility] Anion gap 11 2 - 15 mmol/L [facility] BUN 9 6 - 25 mg/dL [facility] Creatinine 0.65 0.60 - 1.10 mg/dL [facility] Glucose 95 70 - 199 mg/dL [facility] Comment: Interpretive Data Fasting glucose >/= 126 [...] 2022. Calcium 9.9 8.5 - 10.3 mg/dL [facility] Bilirubin, total 0.6 0.1 - 1.2 mg/dL [facility] Protein, pl 7.7 6.5 - 8.5 g/dL [facility] Albumin 4.8 3.5 - 5.0 g/dL [facility] Alk phos 55 40 - 130 Units/L [facility] ALT 18 7 - 45 Units/L [facility] AST 14 10 - 45 Units/L [facility] Blood 05/04/2024 11:2 6 AM [employer] SIL[employer]ER 05/04/2024 11:56 AM [employer] SIL[employer]ER us Gian Damian Jr., MD LAB BLOOD ORDERABLES F inal Result [facility] [place] [address] * POCT Rapid HIV Antibody Community Screening-Rahul Eligible (05/04/2024 11:21 AM [employer]IL[facility]ER) Rapid HIV, POC Negative Negative Lot Number [id number] QC Control Line Acceptable Blood 05/04/2024 11:2 1 AM [employer] SIL[employer]ER Gian Damian Jr., MD POINT OF CARE TEST ORD ERABLES Final Result * POCT hCG, urine (05/04/2024 11:16 AM [employer] SIL[employer]ER) HCG, ur, POC Negative Negative Lot Number [id number] QC Backgroud Clear Acceptable QC Control Line Acceptable Urine 05/04/2024 11:1 6 AM [employer] SIL[employer]ER Gian Damian Jr., MD POINT OF CARE TEST ORD ERABLES Final Result * ECG 12-LEAD (05/04/2024 9:16 AM [employer] SIL[facility]ER) Narrative [facility] - 05/04/2024 9:16 AM [employer] S[employer]ER Yovani Burkett MD 05/04/2024 9:17 AM ECG [...] Burkett MD ECG ORDERABLES Final Resu lt [facility] from Last 3 Months Care Teams Display Specialist Relationship Specialty Start Date End Date No, Physician PCP - General 12/16/21
--- OUTSIDE RECORDS SUMMARY | 2024-07-01 11:41 | XMS_ITS | Clinical Summary ---
Author Organization [facility] Address [address] [place] [phone] Phone Care Team Providers Care Gage Designer Name Role Phone Unavailable Unavailable Unavailable Reason for Visit and Chief Complaint * PHONE CALL Problems Includes: Problems addressed during this encounter and other active Problems All Visits Onset Date Resolved Date Provider Condition S tatus Risk: Tobacco Use 10/14/2017 RIGO BUCIO KEILA GLASGOW Active Last Documented On 8 9:14AM ; [facility] Plan of Treatment No Plan of Treatment Recorded Assessments Includes: Assessments from this encounter No Assessments Recorded Medical Equipment - Implanted Devices Includes: Current Devices No Medical Equipment Recorded Medications Includes: Medications discussed during this encounter and other current Medications Current Medications (continue as prescribed) Nexplanon 68MG Subcutaneous Implant 10/31/2017 Provi misti: Diagnosis: Last Documented On 8 10:10AM By RIGO BUCIO JOSE ; [facility] Diflucan 150MG Oral Tablet 10/14/2017 Provider: Stephen BUCIO JOSE Diagnosis: One tablet daily Last Documented On 8 9:45AM By RIGO BUCIO JOSE ; [facility] Medications Administered Includes: Administered Medications from this [...] Active Last Documented On 10/14/2017 9:20AM ; [facility] Note: Duracef Encounters Encounter Provider Location Date Check-In Time Check-Out Time Diagnosis * PHONE CALL RIGO BUCIO [facility] 1 9:53AM 11:59PM Clinical Notes Includes: Clinical Notes from this encounter No Clinical Notes Recorded
--- OUTSIDE RECORDS SUMMARY | 2024-07-01 11:41 | XMS_ITS | Clinical Summary ---
Author Organization [facility] Address [address] [place] [address] Phone Care Team Providers Care Hooker Off Name Role Phone Provider, None Primary Care Provider Unavailabl e Allergies Active Allergy Reactions Criticality Noted Date Comments Cefadroxil Rash 06/07/2017 Cephradine Rash 05/06/2015 Prochlorperazine Anxiety 12/19/2021 Medications Etonogestrel (NEXPLANON) 68 MG Implant by Subcutaneous route. Active SUMAtriptan (Imitrex) 50 MG Tablet Take 1 Tablet by mouth once as needed for Migraine for up to 1 dose. Use as directed. May repeat dose in 2 hours if headache recurs. 9 Tablet 2 Active ketorolac (TORADOL) 10 MG Tablet Take 1 Tablet by mouth every 6 hours as needed for Mild or more severe pain. 15 Tablet 3 Active cyclobenzaprine (FLEXERIL) 5 MG Tablet Take 1 Tablet by mouth 3 times daily as needed for Muscle spasms. 15 Tablet 3 Active ondansetron (ZOFRAN-ODT) 4 MG TABLET DISPERSIBLE Take 1 Tablet by mouth every 8 hours as needed for Nausea - 1st line. 10 Tablet 4 Active Active Problems No known active problems Encounters Date Type Department Care Team Description 05/03/2024 7:59 AM ELECTROMECHANISMS DESIGN DRAFTER - 05/03/2024 12:05 PM ELECTROMECHANISMS DESIGN DRAFTER Emergency [facility] Emergency [address] [place] [address] Momo Ayers MD Anxiety attack Discharge Disposition: Discharged to home or Selfcare 04/30/2024 6:36 PM ELECTROMECHANISMS DESIGN DRAFTER - 04/30/2024 9:40 PM ELECTROMECHANISMS DESIGN DRAFTER Emergency [facility] Emergency 1 [facility] [place] [address] Ozzie Dennison MD Bilateral flank pain Discharge Disposition: Discharged to home or Selfcare 04/30/2024 Travel from Last 3 Months Immunizations Immunization Administration Dates Next Due DTAP VACCINE 12/25/1993 DTP-Hib 01/29/1997, 3,01/03/1993,10/25 Hepatitis A Vaccine,unspecif ied Formulation 11/01/2006 Hepatitis B Vaccine, Pediatric/adolescent 07/11/1993,1992,1992 Hib (HbOC) 12/25/1993 Human Papillomavirus Vaccine (HPV), quadrivalent 04/30/2007,12/24/2006,10/22/2006 Inactivated Polio Vaccine 01/29/1997,08/1993,01/03/1993,10/25 Influenza Vaccine,unspecifie d Formulation 03/06/2004 MMR Vaccine 01/29/1997,12/25/1993 Meningococcal Vaccine 10/22/2006 Pneumococcal Vaccine Peds - 7 Valent 05/07/2000 TD VACCINE 10/22/2006,08/17/2006 Varicella Vaccine Live 04/01/1998 Social History Tobacco Use Types Packs/Day Years Used Date Smoking Tobacco: Every Day Cigarettes Smokeless Tobacco: Never Alcohol Use Standard Drinks/Week Comments Yes 0 (1 standard drink = 0.6 oz pur e alcohol) RARELY Comments No Sex and Gender Information Value Date Recorded Sex Assigned at Not on file Legal Sex Female 10:10 PM CDT Gender Identity Not on file Sexual Orientation Not on file Last Filed Vital Signs Vital Sign Reading Time Taken Comments Blood Pressure 123/64 05/03/2024 10:30 AM ELECTROMECHANISMS DESIGN DRAFTER Pulse 53 05/03/2024 10:30 AM ELECTROMECHANISMS DESIGN DRAFTER Temperature 36.2 C (97.1 F) 05/03/2024 8:03 AM ELECTROMECHANISMS DESIGN DRAFTER Respiratory Rate 18 05/03/2024 8:03 AM ELECTROMECHANISMS DESIGN DRAFTER Oxygen Saturation 99% 05/03/2024 10:30 AM ELECTROMECHANISMS DESIGN DRAFTER Inhaled Oxygen Concentration - - Weight 68.9 kg (152 lb) 05/03/2024 8:03 AM ELECTROMECHANISMS DESIGN DRAFTER Height 160 cm (5' 3 ) 05/03/2024 8:03 AM ELECTROMECHANISMS DESIGN DRAFTER Body Mass Index 26.93 05/03/2024 8:03 AM ELECTROMECHANISMS DESIGN DRAFTER Plan of Treatment Health Maintenance Due Date Last Done Comments Hepatitis C Virus (HCV) Screening 1992 DTaP/Tdap/Td Immunization (6 - Tdap) 10/23/2006 10/22/2006, 08/17/2006, 01/29/1997, Additional history exists Pneumococcal Immunization Combined (1 of 2 - PCV) 08/10/2011 05/07/2000 Pap Smear 2013 Cervical Cancer Screening (CCS) 2022 HPV/Cotest 2022 Influenza Immunization (#1) 2023 03/06/2004 SARS-COV-2 Immunization ( - season) 2023 Respiratory Syncytial Virus (RSV) Immunization (Adult) (1 - 1-dose 75+ series) 08/10/2067 Hepatitis B Immunization Completed 994, 1992, 1992 Meningococcal Immunization (ACWY) Aged Out 10/22/2006 No longer eligible based on patient's age to complete this topic Human Papillomavirus (HPV) Immunization Discontinued 04/30/2007, 12/24/2006, 10/22/2006 Rotavirus Immunization Aged Out No lo nger eligible based on patient's age to complete this topic Procedures Procedure Name Priority Date/Time Associated Diagnosis Comments POCT URINE HCG () STAT 05/03/2024 9:33 AM ELECTROMECHANISMS DESIGN DRAFTER CBC WITH AUTO DIFFERENTIAL STAT 05/03/2024 9:14 AM ELECTROMECHANISMS DESIGN DRAFTER LIPASE STAT 05/03/2024 9:14 AM ELECTROMECHANISMS DESIGN DRAFTER CMP (COMPREHENSIVE METABOLIC PANEL) STAT 05/03/2024 9:14 AM ELECTROMECHANISMS DESIGN DRAFTER COMPLETE BLOOD COUNT (CBC) WITH DIFF STAT 05/03/2024 9:14 AM ELECTROMECHANISMS DESIGN DRAFTER URINALYSIS REFLEX IF INDICATED BY ABNORMAL RESULTS STAT 05/03/2024 9:00 AM ELECTROMECHANISMS DESIGN [employer] CT ABDOMEN PELVIS W/ CONTRAST Stat with Interpretation 04/30/2024 8:06 PM ELECTROMECHANISMS DESIGN DRAFTER URINALYSIS REFLEX IF INDICATED BY ABNORMAL RESULTS STAT 04/30/2024 6:38 PM ELECTROMECHANISMS DESIGN DRAFTER POCT URINE HCG () STAT 04/30/2024 6:36 PM ELECTROMECHANISMS DESIGN DRAFTER GOLD TOP TUBE STAT 04/30/2024 5:57 PM ELECTROMECHANISMS DESIGN DRAFTER CBC WITH AUTO DIFFERENTIAL STAT 04/30/2024 5:57 PM ELECTROMECHANISMS DESIGN DRAFTER EXTRA TUBES STAT 04/30/2024 5:57 PM ELECTROMECHANISMS DESIGN DRAFTER CMP (COMPREHENSIVE METABOLIC PANEL) STAT 04/30/2024 5:57 PM ELECTROMECHANISMS DESIGN DRAFTER COMPLETE BLOOD COUNT (CBC) WITH DIFF STAT 04/30/2024 5:57 PM ELECTROMECHANISMS DESIGN DRAFTER from Last 3 Months Results * POCT Urine HCG () (05/03/2024 9:33 AM ELECTROMECHANISMS DESIGN DRAFTER) Only the most recent of2 resultswithin the time period is included. Pathologist [facility] POC URINE Negative POC URINE CONTROL [employer] Electrical [employer] Pass Urine 05/03/2024 9:33 AM ELECTROMECHANISMS DESIGN DRAFTER Momo Ayers MD POINT OF CARE TESTING ( MANUAL) Final Result * (ABNORMAL) CBC with Auto Differential (05/03/2024 9:14 AM ELECTROMECHANISMS DESIGN DRAFTER) Only the most recent of2 resultswithin the time period is included. Pathologist [facility] WBC 10.74 4.00 - 12.00 10(3)/mcL 05/03/2024 9:30 AM ELECTROMECHANISMS DESIGN DRAFTER [facility] RBC 4.46 3.80 - 5.30 10(6)/mcL 05/03/2024 9:30 AM ELECTROMECHANISMS DESIGN DRAFTER [facility] HEMOGLOBIN (HGB) 13.5 12.0 - 15.8 g/dL 05/03/2024 9:30 AM [facility] HEMATOCRIT (HCT) 39.1 36.0 - 47.0 % 05/03/2024 9:30 AM [facility] MCV 87.7 82.0 - 96.0 fL 05/03/2024 9:30 AM [facility] MCH 30.3 26.0 - 34.0 pg 05/03/2024 9:30 AM [facility] MCHC 34.5 31.0 - 36.0 g/dL 05/03/2024 9:30 AM [facility] PLATELET COUNT 298 140 - 440 10(3)/mcL 05/03/2024 9:30 AM [facility] RDW 11.9 11.8 - 15.5 % 05/03/2024 9:30 AM [facility] MPV 11.4 9.7 - 12.4 fL 05/03/2024 9:30 AM [facility] NEUTROPHILS 79.4(H) 47.0 - 73.0 % 05/03/2024 9:30 AM [facility] LYMPHOCYTES 15.0(L) 18.0 - 42.0 % 05/03/2024 9:30 AM [facility] MONOCYTES 4.7 4.0 - 12.0 % 05/03/2024 9:30 AM [facility] EOSINOPHILS 0.4 0.0 - 5.0 % 05/03/2024 9:30 AM [facility] BASOPHILS 0.5 0.0 - 1.0 % 05/03/2024 9:30 AM [facility] ABSOLUTE NEUTROPHILS 8.54(H) 1.60 - 7.70 10(3)/mcL 05/03/2024 9:30 AM [facility] ABSOLUTE LYMPHOCYTES 1.61 1.30 - 3.20 10(3)/mcL 05/03/2024 9:30 AM [facility] ABSOLUTE MONOCYTES 0.50 0.20 - 1.00 10(3)/mcL 05/03/2024 9:30 AM ELECTROMECHANISMS DESIGN DRAFTER [facility] ABSOLUTE EOSINOPHIL 0.04 0.00 - 0.40 10(3)/mcL 05/03/2024 9:30 AM ELECTROMECHANISMS DESIGN DRAFTER [facility] ABSOLUTE BASOPHILS 0.05 0.00 - 0.10 10(3)/mcL 05/03/2024 9:30 AM ELECTROMECHANISMS DESIGN DRAFTER [facility] NRBC PER 100 WBC 0 05/03/19 9:30 AM ELECTROMECHANISMS DESIGN DRAFTER [facility] Blood Venipuncture / Unknown 05/03/2024 9:14 AM ELECTROMECHANISMS DESIGN DRAFTER 05/03/2024 9:27 AM ELECTROMECHANISMS DESIGN DRAFTER Momo Ayers MD HEMATOLOGY ORDERABLES F inal Result Performing Organization Address City/[facility] [address]/ZIP Co de Phone Number [facility] [address] [place] [address] * Lipase [id number] (05/03/2024 9:14 AM ELECTROMECHANISMS DESIGN DRAFTER) LIPASE 31 8 - 78 U/L 05/03/2024 9:51 AM ELECTROMECHANISMS DESIGN DRAFTER [facility] Blood Venipuncture / Unknown 05/03/2024 9:14 AM ELECTROMECHANISMS DESIGN DRAFTER 05/03/2024 9:27 AM ELECTROMECHANISMS DESIGN DRAFTER Momo Ayers MD CHEMISTRY ORDERABLES Fi nal Result Performing Organization Address City/[facility] [address]/ZIP Co de Phone Number [facility] [address] [place] [address] * (ABNORMAL) CMP (Comprehensive Metabolic Panel) (05/03/2024 9:14 AM ELECTROMECHANISMS DESIGN DRAFTER) Only the most recent of2 resultswithin the time period is included. SODIUM 142 136 - 145 mmol/L 05/03/2024 9:51 AM ELECTROMECHANISMS DESIGN DRAFTER [facility] POTASSIUM 3.9 3.5 - 5.1 mmol/L 05/03/2024 9:51 AM ELECTROMECHANISMS DESIGN DRAFTER [facility] CHLORIDE 108(H) 98 - 107 mmol/L 05/03/2024 9:51 AM [facility] CO2, VENOUS 23 22 - 30 mmol/L 05/03/2024 9:51 AM [facility] ANION GAP 14.9 <18.0 mmol/L 05/03/2024 9:51 AM [facility] GLUCOSE 111(H) 70 - 99 mg/dL 05/03/2024 9:51 AM [facility] BUN 8 5 - 18 mg/dL 05/03/2024 9:51 AM [facility] CREATININE, BLOOD 0.67 0.60 - 1.00 mg/dL 05/03/2024 9:51 AM [facility] BUN/CREATININE RATIO 12 12 - 20 ratio 05/03/2024 9:51 AM [facility] TOTAL PROTEIN 7.3 6.3 - 8.2 g/dL 05/03/2024 9:51 AM [facility] ALBUMIN 4.5 3.5 - 5.0 g/dL 05/03/2024 9:51 AM [facility] A/G RATIO 1.6 1.0 - 2.2 05/03/2024 9:51 AM [facility] CALCIUM 9.1 8.7 - 10.5 mg/dL 05/03/2024 9:51 AM [facility] T BILI 0.6 0.2 - 1.2 mg/dL 05/03/2024 9:51 AM [facility] SGOT (AST) 15 5 - 34 U/L 05/03/2024 9:51 AM [facility] SGPT (ALT) 12 0 - 55 U/L 05/03/2024 9:51 AM [facility] ALKALINE PHOSPHATASE 49 40 - 150 U/L 05/03/2024 9:51 AM [facility] GFR, ESTIMATED >60 >=60 05/03/2024 9:51 AM [facility] Comment: Creatinine Clearance is the preferred criteria for selecting drug dose adjustments in renally impaired patients. The GFR is provided as additional pertinent clinical information. GFR is reported in mL/min/1.73 sq m. Calculation based on the Chronic Kidney Disease Epidemiology Collaboration (CKD- EPI) equation refit without adjustment for race. GFR, EST. >60 >=60 025 9:51 AM ELECTROMECHANISMS DESIGN DRAFTER [facility] GFR, EST. NONAFRICAN >60 >=60 05/03/2024 9:51 AM ELECTROMECHANISMS DESIGN DRAFTER [facility] Blood Venipuncture / Unknown 05/03/2024 9:14 AM ELECTROMECHANISMS DESIGN DRAFTER 05/03/2024 9:27 AM ELECTROMECHANISMS DESIGN DRAFTER Momo Ayers MD CHEMISTRY ORDERABLES Fi nal Result [facility] [address] [place] [address] * URINALYSIS REFLEX IF INDICATED BY ABNORMAL RESULTS (05/03/2024 9:00 AM ELECTROMECHANISMS DESIGN DRAFTER) Only the most recent of2 resultswithin the time period is included. SPECIFIC GRAVITY 1.005 1.003 - 1.030 05/03/2024 9:33 AM ELECTROMECHANISMS DESIGN DRAFTER [facility] URINE PH 6.5 5.0 - 9.0 05/03/2024 9:33 AM ELECTROMECHANISMS DESIGN DRAFTER [facility] WBC ESTERASE Negative Negative 05/03/2024 9:33 AM ELECTROMECHANISMS DESIGN DRAFTER [facility] NITRITE Negative Negative 05/03/2024 9:33 AM ELECTROMECHANISMS DESIGN DRAFTER [facility] PROTEIN, RANDOM URINE Negative Negative 05/03/2024 9:33 AM ELECTROMECHANISMS DESIGN DRAFTER [facility] URINE GLUCOSE, QUAL Negative Negative 05/03/2024 9:33 AM ELECTROMECHANISMS DESIGN DRAFTER [facility] URINE KETONES Negative Negative 05/03/2024 9:33 AM ELECTROMECHANISMS DESIGN DRAFTER [facility] UROBILINOGEN Normal Normal mg/dL 05/03/2024 9:33 AM ELECTROMECHANISMS DESIGN DRAFTER [facility] URINE BLOOD Negative Negative wolf/ul 05/03/2024 9:33 AM ELECTROMECHANISMS DESIGN DRAFTER [facility] URINALYSIS COLOR Yellow 05/03/19 9:33 AM ELECTROMECHANISMS DESIGN DRAFTER [facility] URINALYSIS CLARITY Clear 05/03/2024 9:33 AM ELECTROMECHANISMS DESIGN DRAFTER [facility] Urine URINE SPECIMEN COLLECTION, CLEAN CATCH / Unknown Non-Phlebotomy Collection / Unknown 05/03/2024 9:00 AM ELECTROMECHANISMS DESIGN DRAFTER 05/03/2024 9:27 AM ELECTROMECHANISMS DESIGN DRAFTER Momo Ayers MD URINE ORDERABLES Final Result [facility] [address] [place] [address] * CT ABDOMEN PELVIS W/ CONTRAST (04/30/2024 8:06 PM ELECTROMECHANISMS DESIGN DRAFTER) Anatomical Region Laterality Modality Abdomen N/A Computed Tomogra phy 04/30/2024 8:56 PM ELECTROMECHANISMS DESIGN DRAFTER Impressions 04/30/2024 8:59 PM ELECTROMECHANISMS DESIGN DRAFTER IMPRESSION: 1. Cholelithiasis. 2. No calculi in the urinary tract. No hydronephrosis or hydroureter. Normal appendix. Narrative 04/30/2024 8:59 PM ELECTROMECHANISMS DESIGN DRAFTER EXAM DESCRIPTION: CT ABDOMEN PELVIS W/ CONTRAST REASON FOR STUDY: Bilateral flank pain x 10 days. 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 Reconstructed coronal and sagittal MPR images reviewed. All images stored on PACS. Automated exposure control was used as a dose optimization technique for this examination. CONTRAST TYPE/DOSE: 70mL of IOPAMIDOL 76 % IV SOLN injected COMPARISON: 05/07/2023 , 2018 FINDINGS: LOWER CHEST: Mild scattered subsegmental atelectasis. Unchanged 3 mm left lower lobe noncalcified pulmonary nodule at slice position 21. No pleural effusion. Imaged portions of the heart and esophagus are within normal limits. LIVER: Normal size. No identified cystic or solid masses. The hepatic and portal veins are patent. GALLBLADDER: Physis. BILE DUCTS: No intrahepatic or extrahepatic ductal dilatation. SPLEEN: Normal size. No focal lesions. PANCREAS: No identified cystic or solid masses. No significant calcifications. No adjacent inflammation or peripancreatic fluid collections. Pancreatic duct not dilated. ADRENALS: Normal. Hypoattenuating bilateral renal lesions are present some of which reflect cysts and some are too small to characterize and have increased in size compared to 2018. For reference, an interpolar region left renal cyst measures 13 mm. Identified significant cystic or solid masses. No visualized stones. No hydronephrosis or hydroureter. Symmetric enhancement. Urinary bladder is unremarkable. GI: The stomach is normal. The small bowel and colon are normal in course and caliber with no evidence of obstruction or inflammation. The appendix is normal. PERITONEUM: No ascites or free air. No lymphadenopathy. RETROPERITONEUM: No mass or adenopathy. REPRODUCTIVE: No significant abnormality. VASCULATURE: No abdominal aortic aneurysm. The abdominal aorta and its branches are patent. MUSCULOSKELETAL: No acute fractures or aggressive osseous lesions. THIS IS AN ELECTRONICALLY VERIFIED FINAL REPORT 04/30/2024 8:56 PM - Electronically signed by Duc Stanton M.D. AT: AT Report ID: [id number] Reading Location: [id number] Procedure Note Duc Stanton MD - 04/30/2024 EXAM DESCRIPTION: CT ABDOMEN PELVIS W/ CONTRAST REASON FOR STUDY: Bilateral flank pain x 10 days. 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 Reconstructed coronal and sagittal MPR images reviewed. All images stored on PACS. Automated exposure control was used as a dose optimization technique for this examination. CONTRAST TYPE/DOSE: 70mL of IOPAMIDOL 76 % IV SOLN injected COMPARISON: 05/07/2023 , 2018 FINDINGS: LOWER CHEST: Mild scattered subsegmental atelectasis. Unchanged 3 mm left lower lobe noncalcified pulmonary nodule at slice position 21. No pleural effusion. Imaged portions of the heart and esophagus are within normal limits. LIVER: Normal size. No identified cystic or solid masses. The hepatic and portal veins are patent. GALLBLADDER: Physis. BILE DUCTS: No intrahepatic or extrahepatic ductal dilatation. SPLEEN: Normal size. No focal lesions. PANCREAS: No identified cystic or solid masses. No significant calcifications. No adjacent inflammation or peripancreatic fluid collections. Pancreatic duct not dilated. ADRENALS: Normal. Hypoattenuating bilateral renal lesions are present some of which reflect cysts and some are too small to characterize and have increased in size compared to 2018. For reference, an interpolar region left renal cyst measures 13 mm. Identified significant cystic or solid masses. No visualized stones. No hydronephrosis or hydroureter. Symmetric enhancement. Urinary bladder is unremarkable. GI: The stomach is normal. The small bowel and colon are normal in course and caliber with no evidence of obstruction or inflammation. The appendix is normal. PERITONEUM: No ascites or free air. No lymphadenopathy. RETROPERITONEUM: No mass or adenopathy. REPRODUCTIVE: No significant abnormality. VASCULATURE: No abdominal aortic aneurysm. The abdominal aorta and its branches are patent. MUSCULOSKELETAL: No acute fractures or aggressive osseous lesions. THIS IS AN ELECTRONICALLY VERIFIED FINAL REPORT 04/30/2024 8:56 PM - Electronically signed by Duc Stanton M.D. AT: AT Report ID: [id number] Reading Location: [id number] IMPRESSION: 1. Cholelithiasis. 2. No calculi in the urinary tract. No hydronephrosis or hydroureter. Normal appendix. Ozzie Dennison MD IMG CT ORDERABLES Final R esult * Gold Top Tube (04/30/2024 5:57 PM ELECTROMECHANISMS DESIGN DRAFTER) Blood No Phlebotomy Charged / Unknown 04/30/2024 5:57 PM ELECTROMECHANISMS DESIGN DRAFTER 04/30/2024 6:22 PM ELECTROMECHANISMS DESIGN DRAFTER Jeremy Bell PAC CHEMISTRY ORDERABLES Final Result [facility] [address] [place] [address] from Last 3 Months Care Teams Hooker Off Relationship Specialty Start Date End Date Provider, None [place] PCP - General 05/06/15
--- OUTSIDE RECORDS SUMMARY | 2024-07-01 11:44 | XMS_ITS ---
Author Organization [facility] Address [address] [place] [address] Phone Care Team Providers Care Supervisor Riveting Name Role Phone Unavailable Unavailable Unavailable Problems Includes: Active, inactive, and resolved Problems All Visits Onset Date Resolved Date Provider Condition S tatus Risk: Tobacco Use 10/14/2017 RIGO VILLARREAL -GIL Active Last Documented On 8 9:14AM ; [facility] History of Abnormal Pap Smear 01/13/2009 Unknown TONG LUNDBERG MD Resolved Last Documented On 01/18/2010 8:51AM ; [facility] Note: was Closed. History of Allergic Rhinitis 01/13/2009 Unknown TONG LUNDBERG MD Resolved Last Documented On 01/18/2010 8:51AM ; [facility] Note: was Closed. History of Renal Disease 01/13/2009 Unknown TONG GUTIERREZ MD Resolved Last Documented On 01/18/2010 8:51AM ; [facility] Note: was Closed. Respiratory Disorders 01/13/2009 Unknown TONG LUNDBERG MD Resolved Last Documented On 01/18/2010 8:51AM ; [facility] Note: was Closed. Tobacco Use 01/13/2009 Unknown TONG LUNDBERG MD Resolve d Last Documented On 01/18/2010 8:51AM ; [facility] Note: was Closed. 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 Declines STD testing MARKING MACHINE TENDER EXAM with RIGO [facility] 06/20/2011 Last Documented On 2 3:24PM ; [facility] Enc condom use Annual xam ranjana manuel in May 2010 1 MONTH CHECK with [facility] 09/27/2009 Last Documented On 0 2:57PM ; [facility] Instructions to patient Instructions for patient : B reast Self Exam discussed Last Documented On 8 9:09AM ; [facility] Instructions for patient : K eep the area around the vulva dry. Allow the area to have exposure to air. Avoid irritants such as fabric softeners and perfumed soaps.~ Last Documented On 8 9:21AM ; [facility] Return to the clinic if cond ition worsens or new symptoms arise Last Documented On 8 9:20AM ; [facility] Advised d/c scented bath pro ducts Last Documented On 8 9:21AM ; [facility] ER/ Pain Precautions Last Documented On 8 9:20AM ; [facility] Gardasil information given a nd series encouraged Series completed! Last Documented On 8 9:11AM ; [facility] Safe sex counseling Last Documented On 8 9:11AM ; [facility] Instructions for patient : t he patient was instructed in the use and possible side effects of the medication prescribed. She is to maintain good hydration via p.o. fluids. We also discussed possible triggers for UTI and preventive measures Last Documented On 5 11:28AM ; [facility] Patient to call if fever or back pain Last Documented On 5 11:28AM ; [facility] Instructed to decrease carbo nation and caffeine Last Documented On 5 11:28AM ; [facility] Increase water po Last Documented On 5 11:28AM ; [facility] Instructions For Patient: go od handwashing and perineal care Last Documented On 5 11:28AM ; [facility] Safe sex counseling Last Documented On 5 11:25AM ; [facility] Instructions for patient : B reast Self Exam discussed Last Documented On 5 10:53AM ; [facility] Gardasil information given a nd series encouraged Series completed! Last Documented On 5 10:55AM ; [facility] Safe sex counseling Last Documented On 5 10:55AM ; [facility] Instructions for patient : B reast Self Exam discussed Last Documented On 2 3:10PM ; [facility] Gardasil information given a nd series encouraged had x 3 doses with peds Last Documented On 2 3:24PM ; [facility] Safe sex counseling Last Documented On 2 3:10PM ; [facility] Education and Decision Aids were provided during visit for: Smoking cessation advised Last Documented On 8 10:10AM ; [facility] Patient Education: Daily giovany cium and vitamin D Last Documented On 8 9:09AM ; [facility] Patient Education: weight be aring exercise Last Documented On 8 9:09AM ; [facility] Smoking cessation advised Last Documented On 8 9:11AM ; [facility] Candidiasis Vulvovaginitis I nformation Sheet Given Last Documented On 8 9:21AM ; [facility] Smoking cessation advised Last Documented On 5 11:27AM ; [facility] Patient Education: Daily giovany cium and vitamin D Last Documented On 5 10:53AM ; [facility] Patient Education: weight be aring exercise Last Documented On 5 10:53AM ; [facility] Patient Education: Daily giovany cium and vitamin D Last Documented On 2 3:10PM ; [facility] Patient Education: weight be aring exercise Last Documented On 2 3:10PM ; [facility] Assessments Includes: Assessments for all patient encounters Findings Encounter Date Contraceptive surveillance PROCEDURE OFFICE with RIGO A [facility] 10/31/2017 Last Documented On 8 10:28AM ; [facility] Salena albicans vulvovaginitis NEW MARKING MACHINE TENDER EXAM wit h RIGO Alexis [facility] 10/14/2017 Last Documented On 8 9:37AM ; [facility] NORMAL FEMALE EXAM NEW MARKING MACHINE TENDER EXAM with RIGO MAYEN [facility] 10/14/2017 Last Documented On 8 9:37AM ; [facility] Contraceptive management RECHECK with RIGO Alexis [facility] 09/27/2014 Last Documented On 5 12:20PM ; [facility] Dysuria RECHECK with RIGO Vanesa [facility] 09/27/2014 Last Documented On 5 12:20PM ; [facility] Contraceptive management IMPLANON with RIGO Vanesa Nahed [facility] 08/26/2014 Last Documented On 5 1:23PM ; [facility] Contraceptive surveillance IMPLANON with RIGO Alexis [facility] 08/26/2014 Last Documented On 5 1:23PM ; [facility] NORMAL FEMALE EXAM MARKING MACHINE TENDER EXAM with RIGOALDAIR BUCIO Angela [facility] 07/08/2014 Last Documented On 5 11:07AM ; [facility] NORMAL FEMALE EXAM MARKING MACHINE TENDER EXAM with RIGO A FORTUNATO Miller [facility] 06/20/2011 Last Documented On 2 3:24PM ; [facility] Contraceptive surveillance IMPLANON with RIGO A [facility] 05/18/2011 Last Documented On 2 3:42PM ; [facility] Contraceptive management: In sertion of IUD IUD INSERTION with [facility] 08/25/2009 Last Documented On 0 5:20PM ; [facility] Normal checkup (6 - 42 wk) RETURN OB EX AM with TONG LUNDBERG MD 06/30/2009 Last Documented On 0 3:09PM ; [facility] Normal checkup (6 - 42 wk) RETU RN OB EXAM with RIGO BUCIO NP-BC 06/22/2009 Last Documented On 0 3:45PM ; [facility] Normal checkup (6 - 42 wk) RETU RN OB EXAM with RIGO BUCIO NP-BC 06/09/2009 Last Documented On 0 3:43PM ; [facility] Normal checkup (6 - 42 wk) RETURN OB EX AM with TONG LUNDBERG MD 05/27/2009 Last Documented On 0 3:32PM ; [facility] Normal checkup (6 - 42 wk) RETU RN OB EXAM with RIGO BUCIO [facility]- 05/12/2009 Last Documented On 0 4:23PM ; [facility] Normal checkup (6 - 42 wk) RETU RN OB EXAM with RIGO BUCIO [facility]- 04/13/2009 Last Documented On 0 10:05AM ; [facility] Normal checkup (6 - 42 wk) RETU RN OB EXAM with RIGO BUCIO [facility]- 02/11/2009 Last Documented On 0 10:10AM ; [facility] Instructions Includes: Instructions for all patient encounters Instructions to patient Instructions for patient : B reast Self Exam discussed Last Documented On 8 9:09AM ; [facility] Instructions for patient : K eep the area around the vulva dry. Allow the area to have exposure to air. Avoid irritants such as fabric softeners and perfumed soaps.~ Last Documented On 8 9:21AM ; [facility] Return to the clinic if cond ition worsens or new symptoms arise Last Documented On 8 9:20AM ; [facility] Advised d/c scented bath pro ducts Last Documented On 8 9:21AM ; [facility] ER/ Pain Precautions Last Documented On 8 9:20AM ; [facility] Gardasil information given a nd series encouraged Series completed! Last Documented On 8 9:11AM ; [facility] Safe sex counseling Last Documented On 8 9:11AM ; [facility] Instructions for patient : t he patient was instructed in the use and possible side effects of the medication prescribed. She is to maintain good hydration via p.o. fluids. We also discussed possible triggers for UTI and preventive measures Last Documented On 5 11:28AM ; [facility] Patient to call if fever or back pain Last Documented On 5 11:28AM ; [facility] Instructed to decrease carbo nation and caffeine Last Documented On 5 11:28AM ; [facility] Increase water po Last Documented On 5 11:28AM ; [facility] Instructions For Patient: go od handwashing and perineal care Last Documented On 5 11:28AM ; [facility] Safe sex counseling Last Documented On 5 11:25AM ; [facility] Instructions for patient : B reast Self Exam discussed Last Documented On 5 10:53AM ; [facility] Gardasil information given a nd series encouraged Series completed! Last Documented On 5 10:55AM ; [facility] Safe sex counseling Last Documented On 5 10:55AM ; [facility] Instructions for patient : B reast Self Exam discussed Last Documented On 2 3:10PM ; [facility] Gardasil information given a nd series encouraged had x 3 doses with peds Last Documented On 2 3:24PM ; [facility] Safe sex counseling Last Documented On 2 3:10PM ; [facility] Education and Decision Aids were provided during visit for: Smoking cessation advised Last Documented On 8 10:10AM ; [facility] Patient Education: Daily giovany cium and vitamin D Last Documented On 8 9:09AM ; [facility] Patient Education: weight be aring exercise Last Documented On 8 9:09AM ; [facility] Smoking cessation advised Last Documented On 8 9:11AM ; [facility] Candidiasis Vulvovaginitis I nformation Sheet Given Last Documented On 8 9:21AM ; [facility] Smoking cessation advised Last Documented On 5 11:27AM ; [facility] Patient Education: Daily giovany cium and vitamin D Last Documented On 5 10:53AM ; [facility] Patient Education: weight be aring exercise Last Documented On 5 10:53AM ; [facility] Patient Education: Daily giovany cium and vitamin D Last Documented On 2 3:10PM ; [facility] Patient Education: weight be aring exercise Last Documented On 2 3:10PM ; [facility] Medical Equipment - Implanted Devices Includes: Current and historical Devices No Medical Equipment Recorded Medications Includes: Current and historical Medications Current Medications (continue as prescribed) Nexplanon 68MG Subcutaneous Implant 10/31/2017 Provi misti: Diagnosis: Last Documented On 8 10:10AM By RIGO BLAKELY ; [facility] Diflucan 150MG Oral Tablet 10/14/2017 Provider: Stephen BLAKELY Diagnosis: One tablet daily Last Documented On 8 9:45AM By RIGO BUCIO JOSE ; [facility] Past Medications on file Bactrim DS 800-160 MG Tablet 10/18/2014 - 10/14/2017 P rovider: RIGO BLAKELY Diagnosis: DYSURIA One tablet twice a day Last Documented On 10/14/2017 9:20AM By MALKA SAENZ ; [facility] Diflucan 150 MG Tablet 09/27/2014 - 10/14/2017 Provide r: RIGO VILLARREAL-BC Diagnosis: One tablet daily Last Documented On 10/14/2017 9:20AM By MALKA SAENZ ; [facility] Bactrim DS 800-160 MG Tablet 09/27/2014 - 10/18/2014 P rovider: RIGO BLAKELY Diagnosis: DYSURIA One tablet twice a day Last Documented On 5 11:03AM By RIGO BLAKELY ; [facility] Nexplanon 68 MG Implant 08/26/2014 - 10/31/2017 Provid er: Diagnosis: Last Documented On 8 10:07AM By RIGO BLAKELY ; [facility] Implanon 68 MG SC IMPL 05/18/2011 - 08/26/2014 Provide r: Diagnosis: Last Documented On 5 1:06PM By RIGO [facility] ; [facility] Mirena (52 MG) 20 MCG/24HR IU IUD 08/25/2009 - 05/18/2011 Provider: SHANDA ALMEIDA AM [facility] Diagnosis: Last Documented On 2 3:27PM By RIGO [facility]UCIO [facility] ; [facility] Macrobid 100 MG OR CAPS 05/10/2009 - 05/17/2009 Provid er: Diagnosis: Last Documented On 05/12/2009 9:33AM By KRISTI OROSCO ; [facility] Reglan 10 MG OR TABS 01/26/2009 - 02/16/2009 Provider: Diagnosis: Last Documented On 05/12/2009 9:34AM By KRISTI OROSCO ; [facility] PX Childrens Vitamin OR CHEW 01/13/2009 - 01/08/2010 P rovider: Diagnosis: Last Documented On 05/12/2009 9:32AM By KRISTI OROSCO ; [facility] Zofran 4 MG OR TABS 01/03/2009 - 01/19/2009 Provider: Diagnosis: 1 q 4 hr Last Documented On 05/12/2009 9:36AM By KRISTI OROSCO ; [facility] Medications Administered Includes: Administered Medications in patient's [...] 10/31/2017 Last Documented On 8 10:28AM ; [facility] Medical History Includes: Medical History in patient's chart Description Last Updated tubes in ears as baby ~age 6 &11 kidney reflux 10/31/2017 Last Documented On 8 10:28AM ; [facility] Asthma inhaler prn 10/31/2017 Last Documented On 8 10:28AM ; [facility] 1 10/31/2017 Last Documented On 8 10:28AM ; [facility] History of Gardasil had with peds Dr Cristin martinez 10/31/2017 Last Documented On 8 10:28AM ; [facility] Para 1 10/31/2017 Last Documented On 8 10:28AM ; [facility] Sexually active 10/31/2017 Last Documented On 8 10:28AM ; [facility] Family History Includes: Family History in patient's chart Description Last Updated Family history of Cancer lung, breast Last Documented On 8 10:28AM ; [facility] Family history of heart disease MGF 10/20 Last Documented On 8 10:28AM ; [facility] Family history of pure hypercholesterole harjinder mother 10/31/2017 Last Documented On 8 10:28AM ; [facility] Family history unchanged 10/31/2017 Last Documented On 8 10:28AM ; [facility] Family medical history of high blood pre ssure 10/31/2017 Last Documented On 8 10:28AM ; [facility] Family medical history of High Cholester ol MGF 10/31/2017 Last Documented On 8 10:28AM ; [facility] Maternal grandfather's history of family history of heart disease MGF 10/31/2017 Last Documented On 8 10:28AM ; [facility] Maternal history of pure hypercholestero lemia mother 10/31/2017 Last Documented On 8 10:28AM ; [facility] Review of Systems Review of Systems not [...] Active Last Documented On 10/14/2017 9:20AM ; [facility] Note: Duracef Clinical Notes Includes: Signed Clinical Notes starting from 05/11/2022 No Clinical Notes Recorded
--- OUTSIDE RECORDS SUMMARY | 2024-07-01 11:44 | XMS_ITS | Clinical Summary ---
Author Organization [facility] Address [address] [place] [phone] Phone Care Team Providers Care Lathe Set Up Operator Name Role Phone Unavailable Unavailable Unavailable Reason for Visit and Chief Complaint unspecified reason for visit - The Chief Complaint is: nexplanon removal and reinsertion lot [id number] Problems Includes: Problems addressed during this encounter and other active Problems All Visits Onset Date Resolved Date Provider Condition S tatus Risk: Tobacco Use 10/14/2017 RIGO A FORTUNATO WHNP -BC Active Last Documented On 8 9:14AM ; [facility] Plan of Treatment - Clinical summary provided to patient - Last Documented On 10/31/2017 10:28AM ; [facility] Recheck urine culture today - s/p UTI and antibx at last visit! No c/o today! - Last Documented On 10/31/2017 10:28AM ; [facility] Pending Tests Order Diagnosis Results Due Ordering Provider In office procedures - OB Implanon Insertion Enctr srvlnc implantable subdermal contraceptive 11/14/17 RIGO A FORTUNATO WHNP-BC Last Documented On 8 10:27AM ; [facility] In office procedures - OB Implanon Removal Enctr srvlnc implantable subdermal contraceptive 11/14/17 RIGO A FORTUNATO WHNP-BC Last Documented On 8 10:27AM ; [facility] Education and Decision Aids were provided during visit for: Smoking cessation advised Last Documented On 8 10:10AM ; [facility] Assessments Includes: Assessments from this encounter Findings - Contraceptive surveillance - Last Documented On 10/31/2017 10:28AM ; [facility] Instructions Includes: Instructions from this encounter Education and Decision Aids were provided during visit for: Smoking cessation advised Last Documented On 8 10:10AM ; [facility] Medical Equipment - Implanted Devices Includes: Current Devices No Medical Equipment Recorded Medications Includes: Medications discussed during this encounter and other current Medications Discontinued / Stopped on this date on 08/26/2014 Nexplanon 68 MG Implant Provider: Diagnosis: Last Documented On 8 10:07AM By RIGO BUCIO JOSE ; [facility] Current Medications (continue as prescribed) Nexplanon 68MG Subcutaneous Implant 10/31/2017 Provi misti: Diagnosis: Last Documented On 8 10:10AM By RIGO BUCIO JOSE ; [facility] Diflucan 150MG Oral Tablet 10/14/2017 Provider: Stephen BLAKELY Diagnosis: One tablet daily Last Documented On 8 9:45AM By RIGO BUCIO JOSE ; [facility] Past Medications on file Macrobid 100 MG OR CAPS 05/10/2009 - 05/17/2009 Provid er: Diagnosis: Last Documented On 05/12/2009 9:33AM By KRISTI OROSCO ; [facility] Reglan 10 MG OR TABS 01/26/2009 - 02/16/2009 Provider: Diagnosis: Last Documented On 05/12/2009 9:34AM By KRISTI OROSCO ; [facility] PX Childrens Vitamin OR CHEW 01/13/2009 - 01/08/2010 Gaetano simmsder: Diagnosis: Last Documented On 05/12/2009 9:32AM By KRISTI OROSCO ; [facility] Zofran 4 MG OR TABS 01/03/2009 - 01/19/2009 Provider: Diagnosis: 1 q 4 hr Last Documented On 05/12/2009 9:36AM By KRISTI OROSCO ; [facility] Medications Administered Includes: Administered Medications from this encounter No Administered Medications Recorded Vital Signs Includes: Vital Signs from this encounter Vital Name 10/31/2017 10:04A Blood Pressure Sitting L 110/60 BP Cuff Size Regular Height (in) 64 Weight (lb) 157 Body Mass Index (kg/m2) 26.9 Body Surface Area (m2) 1.8 Last Documented: On 10/31/2017 10:06A M ; [facility] Results Includes: Results discussed during this encounter CULTURE, URINE, ROUTINE [facility] Collected: 09/27/2014 Reported: 10/01/19 15 13:39 Last Documented On 5 2:18PM ; [facility] Reviewed on 09/30/2014; All test results are final unless otherwise noted. CULTURE, URINE, ROUTINE SEE NOTE A (Abnormal) Last Documented On 09/30/2014 2:18PM ; [facility] Note: CULTURE, URINE, ROUTINE MICRO NUMBER: [id number] TEST STATUS: FINAL SPECIMEN SOURCE: URINE, CLEAN [...] reviewed Last Documented On 8 10:06AM ; [facility] Etonogestrel implant - insertion Last Documented On 8 10:04AM ; [facility] test was negative Last Documented On 8 10:07AM ; [facility] Surgical History Last Updated Surgical / procedural history tubes in e ar ~surg on kidney 10/31/2017 Last Documented On 8 10:28AM ; [facility] Medical History Includes: Medical History addressed during this encounter Description Last Updated tubes in ears as baby ~age 8 &13 kidney reflux 10/31/2017 Last Documented On 8 10:28AM ; [facility] Asthma inhaler prn 10/31/2017 Last Documented On 8 10:28AM ; [facility] 1 10/31/2017 Last Documented On 8 10:28AM ; [facility] History of Gardasil had with peds Dr Cristin martinez 10/31/2017 Last Documented On 8 10:28AM ; [facility] Para 1 10/31/2017 Last Documented On 8 10:28AM ; [facility] Sexually active 10/31/2017 Last Documented On 8 10:28AM ; [facility] Family History Includes: Family History addressed during this encounter Description Last Updated Family history of Cancer lung, breast Last Documented On 8 10:28AM ; [facility] Family history of heart disease MGF 10/20 Last Documented On 8 10:28AM ; [facility] Family history of pure hypercholesterole harjinder mother 10/31/2017 Last Documented On 8 10:28AM ; [facility] Family history unchanged 10/31/2017 Last Documented On 8 10:28AM ; [facility] Family medical history of high blood pre ssure 10/31/2017 Last Documented On 8 10:28AM ; [facility] Family medical history of High Cholester ol MGF 10/31/2017 Last Documented On 8 10:28AM ; [facility] Maternal grandfather's history of family history of heart disease MGF 10/31/2017 Last Documented On 8 10:28AM ; [facility] Maternal history of pure hypercholestero lemia mother 10/31/2017 Last Documented On 8 10:28AM ; [facility] Review of Systems Includes: Review of Systems [...] Active Last Documented On 10/14/2017 9:20AM ; [facility] Note: Duracef Encounters Encounter Provider Location Date Check-In Time Check-Out Time Diagnosis PROCEDURE OFFICE RIGO BUCIO [facility] DIRECTOR OF PHYSICAL EDUCATION 11/01/19 18 10:02AM 10:33AM Contraceptive Surveillance Clinical Notes Includes: Clinical Notes from this encounter No Clinical Notes Recorded
--- OUTSIDE RECORDS SUMMARY | 2024-07-01 11:44 | XMS_ITS | Clinical Summary ---
Author Organization [facility] Address [address] [place] [phone] Phone Care Team Providers Care Customer Assistance Associate Name Role Phone Unavailable Unavailable Unavailable Reason for Visit and Chief Complaint * PHONE CALL Problems Includes: Problems addressed during this encounter and other active Problems All Visits Onset Date Resolved Date Provider Condition S tatus Risk: Tobacco Use 10/14/2017 RIGO BUCIO KEILA GLASGOW Active Last Documented On 8 9:14AM ; [facility] Plan of Treatment No Plan of Treatment Recorded Assessments Includes: Assessments from this encounter No Assessments Recorded Medical Equipment - Implanted Devices Includes: Current Devices No Medical Equipment Recorded Medications Includes: Medications discussed during this encounter and other current Medications Current Medications (continue as prescribed) Nexplanon 68MG Subcutaneous Implant 10/31/2017 Provi misti: Diagnosis: Last Documented On 8 10:10AM By RIGO BUCIO JOSE ; [facility] Diflucan 150MG Oral Tablet 10/14/2017 Provider: Stephen BUCIO JOSE Diagnosis: One tablet daily Last Documented On 8 9:45AM By RIGO BUCIO JOSE ; [facility] Medications Administered Includes: Administered Medications from [...] Active Last Documented On 10/14/2017 9:20AM ; [facility] Note: Duracef Encounters Encounter Provider Location Date Check-In Time Check-Out Time Diagnosis * PHONE CALL RIGO BUCIO [facility] 1 9:53AM 11:59PM Clinical Notes Includes: Clinical Notes from this encounter No Clinical Notes Recorded
--- OUTSIDE RECORDS SUMMARY | 2024-07-01 11:44 | XMS_ITS | Clinical Summary ---
Author Organization [facility] Address [address] [place] [phone] Phone Care Team Providers Care Recreation Programmer Name Role Phone Unavailable Unavailable Unavailable Reason for Visit and Chief Complaint [Patient Encounter] Problems Includes: Problems addressed during this encounter and other active Problems All Visits Onset Date Resolved Date Provider Condition S tatus Risk: Tobacco Use 10/14/2017 RIGO BUCIO KEILA GLASGOW Active Last Documented On 8 9:14AM ; [facility] Plan of Treatment No Plan of [...] 8 10:10AM By RIGO BUCIO JOSE ; [facility] Diflucan 150MG Oral Tablet 10/14/2017 Provider: Stephen BLAKELY Diagnosis: One tablet daily Last Documented On 8 9:45AM By RIGO BUCIO JOSE ; [facility] Medications Administered Includes: [...] Active Last Documented On 10/14/2017 9:20AM ; [facility] Note: Duracef Encounters Encounter Provider Location Date Check-In Time Check- Out Time Diagnosis [Patient Encounter] RIGO BUCIO [facility] 8 4:22PM 11:59PM Clinical Notes Includes: Clinical Notes from this encounter No Clinical Notes Recorded
--- OUTSIDE RECORDS SUMMARY | 2024-07-01 11:45 | XMS_ITS | Clinical Summary ---
Author Organization [facility] Address [address] [place] [phone] Phone Care Team Providers Care Key Punch Operator Name Role Phone Unavailable Unavailable Unavailable Reason for Visit and Chief Complaint 1 MONTH CHECK Problems Includes: Problems addressed during this encounter and other active Problems All Visits Onset Date Resolved Date Provider Condition S tatus Risk: Tobacco Use 10/14/2017 RIGO BUCIO KEILA GLASGOW Active Last Documented On 8 9:14AM ; [facility] Plan of Treatment No Plan of [...] 8 10:10AM By RIGO BUCIO JOSE ; [facility] Diflucan 150MG Oral Tablet 10/14/2017 Provider: Stephen BUCIO JOSE Diagnosis: One tablet daily Last Documented On 8 9:45AM By RIGO BUCIO GARETH ; [facility] Medications Administered Includes: Administered Medications [...] Active Last Documented On 10/14/2017 9:20AM ; [facility] Note: Duracef Clinical Notes Includes: Clinical Notes from this encounter No Clinical Notes Recorded
--- OUTSIDE RECORDS SUMMARY | 2024-07-01 11:45 | XMS_ITS | Clinical Summary ---
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 [employer] Name Role Phone Unavailable Unavailable Unavailable Reason [...] Active Last Documented On 8 9:14AM ; [facility] Plan of Treatment - Clinical summary provided to patient - Last Documented On 10/14/2017 9:37AM ; [facility] Pending Tests Order Diagnosis Results Due Ordering P rovider Ultrasound (OB) - ULTRASOUND Pelvic w/TVT (TransVag) Other ovarian cyst, right side 10/14/17 RIGO BUCIO WHNP-BC Last Documented On 9 1:27PM ; [facility] Instructions to patient Instructions for patient : B reast Self Exam discussed Last Documented On 8 9:09AM ; [facility] Instructions for patient : K eep the area around the vulva dry. Allow the area to have exposure to air. Avoid irritants such as fabric softeners and perfumed soaps.~ Last Documented On 8 9:21AM ; [facility] Return to the clinic if cond ition worsens or new symptoms arise Last Documented On 8 9:20AM ; [facility] Advised d/c scented bath pro ducts Last Documented On 8 9:21AM ; [facility] ER/ Pain Precautions Last Documented On 8 9:20AM ; [facility] Gardasil information given a nd series encouraged Series completed! Last Documented On 8 9:11AM ; [facility] Safe sex counseling Last Documented On 8 9:11AM ; [facility] Education and Decision Aids were provided during visit for: Patient Education: Daily giovany cium and vitamin D Last Documented On 8 9:09AM ; [facility] Patient Education: weight be aring exercise Last Documented On 8 9:09AM ; [facility] Smoking cessation advised Last Documented On 8 9:11AM ; [facility] Candidiasis Vulvovaginitis I nformation Sheet Given Last Documented On 8 9:21AM ; [facility] Assessments Includes: Assessments from this encounter Findings - NORMAL FEMALE EXAM - Last Documented On 10/14/2017 9:37AM ; [facility] - Shannen albicans vulvovaginitis - Last Documented On 10/14/2017 9:37AM ; [facility] Instructions Includes: Instructions from this encounter Instructions to patient Instructions for patient : B reast Self Exam discussed Last Documented On 8 9:09AM ; [facility] Instructions for patient : K eep the area around the vulva dry. Allow the area to have exposure to air. Avoid irritants such as fabric softeners and perfumed soaps.~ Last Documented On 8 9:21AM ; [facility] Return to the clinic if cond ition worsens or new symptoms arise Last Documented On 8 9:20AM ; [facility] Advised d/c scented bath pro ducts Last Documented On 8 9:21AM ; [facility] ER/ Pain Precautions Last Documented On 8 9:20AM ; [facility] Gardasil information given a nd series encouraged Series completed! Last Documented On 8 9:11AM ; [facility] Safe sex counseling Last Documented On 8 9:11AM ; [facility] Education and Decision Aids were provided during visit for: Patient Education: Daily giovany cium and vitamin D Last Documented On 8 9:09AM ; [facility] Patient Education: weight be aring exercise Last Documented On 8 9:09AM ; [facility] Smoking cessation advised Last Documented On 8 9:11AM ; [facility] Candidiasis Vulvovaginitis I nformation Sheet Given Last Documented On 8 9:21AM ; [facility] Medical Equipment - Implanted Devices Includes: Current Devices No Medical Equipment Recorded Medications Includes: Medications discussed during this encounter and other current Medications Discontinued / Stopped on this date RIGO BUCIO JOSE on 10/18/2014 Bactrim DS 800-160 MG Tablet Provider: RIGO BLAKELY Diagnosis: DYSURIA Last Documented On 10/14/2017 9:20AM By MALKA SAENZ ; [facility] Diflucan 150 MG Tablet Provider: RIGO BLAKELY Diagnosis: Last Documented On 10/14/2017 9:20AM By MALKA SAENZ ; [facility] New / Renewed during this visit RIGO BLAKELY on 10/14/2017 Diflucan 150MG Oral Tablet Provider: Stephen BUCIO JOSE 1 day supply: 1 tablet, 0 refills Diagnosis: One tablet daily [facility] [address] [facility], [phone] - Last Documented On 8 9:45AM By RIGO BLAKELY ; [facility] Current Medications (continue as prescribed) Nexplanon 68MG Subcutaneous Implant 10/31/2017 Provi misti: Diagnosis: Last Documented On 8 10:10AM By RIGO BUCIO JOSE ; [facility] Past Medications on file Macrobid 100 MG OR CAPS 05/10/2009 - 05/17/2009 Provid er: Diagnosis: Last Documented On 05/12/2009 9:33AM By KRISTI OROSCO ; [facility] Reglan 10 MG OR TABS 01/26/2009 - 02/16/2009 Provider: Diagnosis: Last Documented On 05/12/2009 9:34AM By KRISTI OROSCO ; [facility] PX Childrens Vitamin OR CHEW 01/13/2009 - 01/08/2010 Gaetano kelsynatalie: Diagnosis: Last Documented On 05/12/2009 9:32AM By KRISTI OROSCO ; [facility] Zofran 4 MG OR TABS 01/03/2009 - 01/19/2009 Provider: Diagnosis: 1 q 4 hr Last Documented On 05/12/2009 9:36AM By KRISTI OROSCO ; [facility] Medications Administered Includes: Administered Medications from this encounter No Administered Medications Recorded Vital Signs Includes: Vital Signs from this encounter Vital Name 10/14/2017 09:14A Blood Pressure Sitting L 110/64 BP Cuff Size Regular Height (in) 64 Weight (lb) 155 Body Mass Index (kg/m2) 26.6 Body Surface Area (m2) 1.8 Last Documented: On 10/14/2017 9:18AM ; [facility] Results Includes: Results discussed during this encounter No Results Recorded For Specified Dates History of Present Illness Includes: History of Present Illness from this encounter NYASIA KING is a 27 year old female. - Medication list reviewed. - No night sweats. Social History Description Last Updated Alcohol use rarely 10/14/2017 Last Documented On 8 9:37AM ; [facility] Cigarette smoking 10/14/2017 Last Documented On 8 9:37AM ; [facility] In monogamous relationship 10/14/2017 Last Documented On 8 9:37AM ; [facility] Not using drugs 10/14/2017 Last Documented On 8 9:37AM ; [facility] Sexually active with 1 partners in the l ast year 10/14/2017 Last Documented On 8 9:37AM ; [facility] Social history changed pt is now taking care of her 3 nieces and newphew with her mother 10/14/2017 Last Documented On 8 9:37AM ; [facility] Smoking status : Current everyday smoker 10/14/2017 Last Documented On 8 9:37AM ; [facility] Procedures and Surgical History Includes: Procedures from this encounter Procedures Code Diagnosis Performing Provider Service L ocation Service Date low fat diet Last Documented On 8 9:11AM ; [facility] a vaginal wet mount smear was performed [id number] Last Documented On 8 9:21AM ; [facility] a vaginal wet mount smear for shannen wa s positive Last Documented On 8 9:34AM ; [facility] a vaginal wet mount smear for Trichomona s vaginalis was negative Last Documented On 8 9:21AM ; [facility] a vaginal wet mount smear for clue cells was negative Last Documented On 8 9:21AM ; [facility] Chlamydia trachomatis culture was perfor med Last Documented On 8 9:11AM ; [facility] Neisseria gonorrhea culture was performe d Last Documented On 8 9:11AM ; [facility] Cervical Pap Smear performed [id number] Last Documented On 8 9:10AM ; [facility] Surgical History Last Updated Surgical / procedural history tubes in e ar ~surg on kidney 10/31/2017 Last Documented On 8 9:11AM ; [facility] Medical History Includes: Medical History addressed during this encounter Description Last Updated tubes in ears as baby ~age 6 &11 kidney reflux 10/31/2017 Last Documented On 8 9:11AM ; [facility] Asthma inhaler prn 10/31/2017 Last Documented On 8 9:11AM ; [facility] 1 10/31/2017 Last Documented On 8 9:11AM ; [facility] History of Gardasil had with pedbenny martinez 10/31/2017 Last Documented On 8 9:11AM ; [facility] Para 1 10/31/2017 Last Documented On 8 9:11AM ; [facility] No recent change in medical history 09/21 Last Documented On 8 9:37AM ; [facility] Sexually active 10/14/2017 Last Documented On 8 9:37AM ; [facility] Contraception: nexplanon 5-7-15 10/15/19 18 Last Documented On 8 9:37AM ; [facility] History of Pap smear done 07/08/201409/21 Last Documented On 8 9:37AM ; [facility] LMP: 09/04/2017 10/14/2017 Last Documented On 8 9:37AM ; [facility] Result: normal 10/14/2017 Last Documented On 8 9:37AM ; [facility] Family History Includes: Family History addressed during this encounter Description Last Updated Family history of Cancer lung, breast Last Documented On 8 9:11AM ; [facility] Family history unchanged 10/31/2017 Last Documented On 8 9:11AM ; [facility] Family medical history of high blood pre ssure 10/31/2017 Last Documented On 8 9:11AM ; [facility] Family medical history of High Cholester ol MGF 10/31/2017 Last Documented On 8 9:11AM ; [facility] Maternal grandfather's history of family history of heart disease MGF 10/14/2017 Last Documented On 8 9:37AM ; [facility] Maternal history of pure hypercholestero lemia mother 10/14/2017 Last Documented On 8 9:37AM ; 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
--- OUTSIDE RECORDS SUMMARY | 2024-07-01 11:45 | XMS_ITS ---
Care Plan - [facility] Created on: July 01, 2024 TAM KING : 1990 Sex: Female Author Organization [facility] Address [address] [place] [phone] Phone Care Team Providers Care Loan Interviewer Name Role Phone Unavailable Unavailable Unavailable
== END 2024-07-01 11:10 | disposition home or self-care (01) ==
PROVIDERS: Emergency Provider Nurse Practitioner Family
DX: G43.909 Migraine, unspecified, not intractable, without status migrainosus (principal); J45.909 Unspecified asthma, uncomplicated
CPT/HCPCS: 96372; 99213; G0463; J1885